=== PATIENT | female | born 1935 | race Caucasian/White ===

== ENCOUNTER 2020-04-11 22:15 | Emergency (ER) | payer MEDICARE | END 2020-04-12 02:30 | disposition home or self-care (01) | LOC: ERS 22:15 | DX: J44.1 Chronic obstructive pulmonary disease with (acute) exacerbation (principal); I48.91 Unspecified atrial fibrillation; E03.9 Hypothyroidism, unspecified; I11.0 Hypertensive heart disease with heart failure; I50.9 Heart failure, unspecified; E11.40 Type 2 diabetes mellitus with diabetic neuropathy, unspecified | CPT/HCPCS: 36415; 99285 ==

== ENCOUNTER 2020-04-12 15:29 | Emergency (ER) | payer MEDICARE ==
[2020-04-12] MEDS ORDERED: methylPREDNISolone Sod Succ/PF 125 MG/2 ML VIAL ONE (15:56)
[2020-04-12] MEDS ORDERED: Acetaminophen 500 MG TAB ONE (16:47)
[2020-04-12] MEDS ORDERED: cefTRIAXone\\ROCEPHIN 1 GM VIAL ONE (16:47)
[2020-04-12 16:53] LABS: Bacteria/HPF None Seen HPF (None Seen); Bilirubin Negative (Negative); Blood, Urine Negative (Negative); Clarity Clear (Clear); Glucose, Urine (Dipstick) Normal (Negative); Ketone, Urine Negative (Negative); Leukocyte Negative Leu/uL (Negative); Nitrite Negative (Negative); Protein, Urine (Dipstick) 100 mg/dL (Neg-Trace); RBC/HPF 0-3 HPF (0-3); Specific Gravity, Urine 1.025 (1.002-1.036); Urobilinogen Normal mg/dL (Less than 2); pH, Urine 5.5 (5.0-9.0)
[2020-04-12 16:57] LABS: Hemoglobin 11.7 g/dL (12.0-16.0); Mean Corpuscular HGB CONC 33.3 g/dL (32.0-36.0); Mean Corpuscular Hemoglobin 33.1 pg (27.0-31.0); Mean Corpuscular Volume 99.3 fL (78.0-98.0); Mean Platelet Volume 8.7 fL (7.4-10.4); Platelet Count 114 thou/uL (130-400); RBC Distribution Width 12.8 % (11.5-14.5); Red Blood Cell (RBC) Count 3.54 mill/uL (4.20-5.40); White Blood Cell (WBC) Count 11.1 thou/uL (4.8-10.8)
[2020-04-12 17:14] LABS: Band 13 % (5-11); Lymphocytes 6 % (21-51); MDiff Complete? YES; Monocytes 3 % (0-10); Neutrophil 78 % (42-75); Ovalocytes SLIGHT = 2-5 cells (100X) (0-1/hpf); Platelet Morphology Comment Appears Decreased; Polychromasia SLIGHT = 2-3 cells (100X) (0-2/hpf)
[2020-04-12 17:32] LABS: SARS-CoV-2 NAA Rapid Test Not Detected (NotDetected)
[2020-04-12 17:41] LABS: CKMB 0.6 ng/mL (0-6.6)
[2020-04-12] MEDS ORDERED: Azithromycin 500 MG VIAL ONE (17:55)
[2020-04-12 18:14] LABS: ALT (SGPT) 67 U/L (8-55); AST (SGOT) 59 U/L (5-34); Albumin 3.7 g/dL (3.4-4.8); Alkaline Phosphatase 210 U/L (40-110); Anion Gap 18 mmol/L (10-20); BUN (Urea Nitrogen) 28 mg/dL (9.8-20.1); Bilirubin, Total 1.2 mg/dL (0.2-1.2); Calc. Creatinine Clearance 0 mL/min (70-130); Calcium 9.5 mg/dL (7.8-10.44); Carbon Dioxide 24 mmol/L (23-31); Chloride 98 mmol/L (98-107); Glucose 128 mg/dL (83-110); Lipase 373 U/L (8-78); Magnesium 2.1 mg/dL (1.6-2.6); Potassium 4.8 mmol/L (3.5-5.1); Protein, Total 7.7 g/dL (5.8-8.1); Sodium 135 mmol/L (136-145)
== END 2020-04-12 21:17 | disposition short-term general hospital (02) ==
LOC: ERS 15:29
DX: J44.1 Chronic obstructive pulmonary disease with (acute) exacerbation (principal); J18.9 Pneumonia, unspecified organism; I48.91 Unspecified atrial fibrillation; M19.90 Unspecified osteoarthritis, unspecified site; I50.9 Heart failure, unspecified; E11.40 Type 2 diabetes mellitus with diabetic neuropathy, unspecified; E78.5 Hyperlipidemia, unspecified; I11.0 Hypertensive heart disease with heart failure; E66.9 Obesity, unspecified; Z20.822 Contact with and (suspected) exposure to COVID-19; E03.9 Hypothyroidism, unspecified
CPT/HCPCS: 0240U; 71045; 82553; 83605; 83690; 83735; 83880; 84484; 87040; 87086; 93005; 36415; 80053; 81003; 81015; 84443; 85025; 96365; 96366; 96367; 96375; J0456; J0696; J2930

== ENCOUNTER 2020-05-07 06:26 | Inpatient (IN) | payer MEDICARE ==
[2020-05-07 07:20] LABS: Anion Gap 16 mmol/L (10-20); BUN (Urea Nitrogen) 33 mg/dL (9.8-20.1); Calc. Creatinine Clearance 0 mL/min (70-130); Carbon Dioxide 24 mmol/L (23-31); Chloride 102 mmol/L (98-107); Glucose 146 mg/dL (83-110); Potassium 4.5 mmol/L (3.5-5.1); Sodium 137 mmol/L (136-145)
[2020-05-07] MEDS ORDERED: Norepinephrine 8 MG/0.9% NS 250 ML IVPB PRN (08:11)
[2020-05-07] MEDS ORDERED: Ondansetron PF 4 MG/2 ML Vial IVP PRN (08:11)
--- NOTE | 2020-05-07 08:21 | PDOC.HHP ---
Hospitalist HPI Fever History of Present Illness: The patient is an 84-year-old female with past medical history of COPD, CHF, atrial fibrillation on warfarin, hypothyroidism, diabetes mellitus, hypertension, hyperlipidemia, glaucoma, peripheral neuropathy, and aortic stenosis. She presented to [facility] with complaints of shortness of breath and fever over the past few days. Initial evaluation revealed that the patient was hypotensive and her lactic acid level was elevated. UA was suggestive of UTI. Chest imaging revealed chronic changes with no specific consolidation. The patient had no increased oxygen requirement above her baseline. Her rapid Covid test was negative. She was given fluid bolus per sepsis protocol but remained hypotensive and thus was started on vasopressors. Broad-spectrum antibiotics of vancomycin and cefepime were given and the patient was transferred to our facility. Allergies/Adverse Reactions: Allergy/AdvReac Type Severity Reaction Status Date / Time metolazone [From Zaroxolyn] Allergy Verified 06/08/19 13:58 sulfamethoxazole Allergy Verified 06/08/19 13:58 [From Bactrim] trimethoprim [From Bactrim] Allergy Verified 06/08/19 13:58 Home Medications: Medication Instructions Recorded Confirmed Type Albuterol Sulfate [Proair HFA] 2 puff INH Q4HR PRN 10/11/16 06/07/17 History Atorvastatin Calcium [Lipitor] 20 mg PO DAILY 10/11/16 06/07/17 History Betaxolol HCl [Betoptic S 0.25% 1 drop EA EYE BID 10/11/16 06/07/17 History Ophth Suspension] DULoxetine [Cymbalta] 30 mg PO DAILY 10/11/16 06/07/17 History Digoxin [Lanoxin] 0.125 mg PO DAILY 10/11/16 06/07/17 History Gabapentin 600 mg PO BID 10/11/16 05/07/20 History Levothyroxine Sodium [Levo-T] 112 mcg PO DAILY 10/11/16 05/07/20 History Loratadine [Claritin] 10 mg PO DAILY PRN 10/11/16 06/07/17 History Metoprolol Tartrate [Lopressor] 50 mg PO BID 10/11/16 06/07/17 History Omeprazole 20 mg PO BID 10/11/16 06/07/17 History Torsemide [Demadex] 30 mg PO DAILY 10/11/16 06/07/17 History Dicyclomine [Bentyl] 20 mg PO QID PRN #30 tab 10/20/16 06/07/17 Rx Lisinopril [Zestril] 5 mg PO DAILY 06/07/17 05/07/20 History Warfarin Sodium 5 mg PO SEEPHYS 06/07/17 06/07/17 History Warfarin Sodium 7.5 mg PO SEEPHYS 06/07/17 06/07/17 History metFORMIN [Glucophage] 500 mg PO BID-WM 06/07/17 05/07/20 History Past History: PMHx: As noted above PSHx: Valve replacement, bilateral hip surgery, left knee surgery, pacemaker placement, carpal tunnel surgery, laparoscopy and lysis of adhesion. FHx: Noncontributory to current presentation. Social: Denies alcohol use, illicit drug use, or smoking. Hospitalist HPI ROS All other systems reviewed; all pertinent +/- noted in HPI/Subj Hospitalist Exam General Appearance: awake alert ENT: normocephalic atraumatic Neck: supple Heart: irregular Respiratory: normal chest expansion, no tachypnea, rhonchi Gastrointestinal: soft, non-tender, non-distended Extremities: no cyanosis, no clubbing Neurological: cranial nerve grossly intact, no new deficit Hospitalist Results Result Diagrams: 05/07/20 06:52 Lab results: Laboratory Last Values Sodium 137 mmol/L (136-145) 05/07/20 06:52 Potassium 4.5 mmol/L (3.5-5.1) 05/07/20 06:52 Chloride 102 mmol/L (98-107) 05/07/20 06:52 Carbon Dioxide 24 mmol/L (23-31) 05/07/20 06:52 Anion Gap 16 mmol/L (10-20) 05/07/20 06:52 BUN 33 mg/dL (9.8-20.1) H 05/07/20 06:52 Creatinine 1.40 mg/dL (0.6-1.1) H 05/07/20 06:52 Estimated GFR (MDRD) 36 05/07/20 06:52 Glucose 146 mg/dL (83-110) H 05/07/20 06:52 Lactic Acid 2.1 mmol/L (0.5-2.2) 05/07/20 06:52 Calcium 9.0 mg/dL (7.8-10.44) 05/07/20 06:52 Hospitalist H&P A/P (1) Septic shock Code(s): A41.9 - SEPSIS, UNSPECIFIED ORGANISM; R65.21 - SEVERE SEPSIS WITH SEPTIC SHOCK Status: Acute (2) Urinary tract infection Status: Acute (3) Chronic respiratory failure with hypoxia Code(s): J96.11 - CHRONIC RESPIRATORY FAILURE WITH HYPOXIA Status: Acute (4) CHF (congestive heart failure) Code(s): I50.9 - HEART FAILURE, UNSPECIFIED Status: Acute (5) COPD (chronic obstructive pulmonary disease) Status: Acute (6) Hyperlipidemia Code(s): E78.5 - HYPERLIPIDEMIA, UNSPECIFIED Status: Acute (7) Diabetes mellitus type 2 in obese Code(s): E11.69 - TYPE 2 DIABETES MELLITUS WITH OTHER SPECIFIED COMPLICATION; E66.9 - OBESITY, UNSPECIFIED Status: Acute (8) Peripheral neuropathy Code(s): G62.9 - POLYNEUROPATHY, UNSPECIFIED Status: Acute (9) Chronic atrial fibrillation Code(s): I48.20 - CHRONIC ATRIAL FIBRILLATION, UNSPECIFIED Status: Acute (10) History of aortic stenosis Code(s): Z86.79 - PERSONAL HISTORY OF OTHER DISEASES OF THE CIRCULATORY SYSTEM Status: Acute (11) Obesity Code(s): E66.9 - OBESITY, UNSPECIFIED Status: Acute Plan: The patient will be admitted to the CCU. She does not appear to be in exacerbation of CHF or COPD and her oxygen requirements are at baseline. We will hold off on any diuretics until her septic shock resolves. We will manage her COPD with duo nebs as needed. As far as her septic shock, UTI is the most likely cause. I will start the patient on meropenem and obtain blood and urine cultures. The patient received a bolus of IV fluids. I will avoid further boluses due to her history of CHF. She is on norepinephrine at a rate of 10 and her systolic blood pressure is 135 at the moment. We will wean off norepinephrine as tolerated. Atrial fibrillation is currently controlled. We will resume her home digoxin now and metoprolol once her hypotension is resolved. Continue warfarin and check INR daily. As far as diabetes management, we will hold Metformin due to sepsis and use insulin sliding scale to control blood sugar levels. 40 minutes of critical care time was used to evaluate and manage this patient.
[2020-05-07] MEDS ORDERED: Dextrose 5% in Water 1,000 ML IV PRN (08:26)
[2020-05-07] MEDS ORDERED: Dextrose 50% Abboject 50 ML SYRINGE SLOW IVP PRN (08:26)
[2020-05-07] MEDS ORDERED: Warfarin Sodium 7.5 MG TAB PO SCH (08:30)
[2020-05-07] MEDS ORDERED: Warfarin Sodium 5 MG TAB PO SCH ×2 (08:30→17:00)
[2020-05-07] MEDS ORDERED: BETAXOLOL HCL EA EYE SCH (09:00)
[2020-05-07] MEDS ORDERED: Famotidine/PF 20 mg/2ml Vial SLOW IVP SCH (09:00)
[2020-05-07] MEDS ORDERED: Levothyroxine Sodium 100 MCG TAB PO SCH (09:00)
[2020-05-07 10:16] VITALS: BMI 32.9
[2020-05-07 10:41] LABS: Lactic Acid 4.2 mmol/L (0.5-2.2)
[2020-05-07] MEDS ORDERED: Albumin 25% 25 GM/100 ML BOT IVPB SCH (10:48)
[2020-05-07] MEDS ORDERED: Sodium Chloride 0.9% 500 ML IV SCH (11:00)
[2020-05-07] MEDS ORDERED: Digoxin 0.125 MG TAB ONE (12:42)
[2020-05-07] MEDS ORDERED: Famotidine/PF 20 mg/2ml Vial ONE (12:42)
[2020-05-07] MEDS ORDERED: Metoprolol Tartrate 50 MG TAB ONE (12:42)
[2020-05-07] MEDS: Atorvastatin Calcium 20 MG TAB PO SCH (12:49)
[2020-05-07] MEDS: Digoxin 0.125 MG TAB PO SCH (12:50)
[2020-05-07] MEDS: DULoxetine 30 MG CAP PO SCH (12:50)
[2020-05-07] MEDS: Metoprolol Tartrate 50 MG TAB PO SCH ×2 (12:51→21:36)
[2020-05-07] MEDS: Gabapentin 300 MG CAP PO SCH ×2 (12:51→21:34)
[2020-05-07] MEDS ORDERED: Meropenem 1 GM in Sodium Chloride 0.9% 100 ML IVPB SCH (14:00)
[2020-05-07] MEDS: MEROPENEM 1 GM/50 ML 1 GM in Premix Bag 1 BAG IVPB SCH ×2 (16:18→21:37)
[2020-05-07 16:32] LABS: INR-International Normal Ratio 1.3; Prothrombin Time 16.4 sec (12.0-14.7)
[2020-05-07] MEDS: Timolol 0.25% Ophth Soln 5 ml Bottle EA EYE SCH ×2 (17:48→21:36)
[2020-05-07] MEDS: Warfarin Sodium 5 MG TAB PO SCH (17:51)
[2020-05-07 18:13] LABS: Glucose 153 mg/dL (83-110)
[2020-05-07] MEDS ORDERED: Fentanyl 100 MCG/2 ML VIAL SLOW IVP SCH (19:15)
[2020-05-07] MEDS ORDERED: Midazolam HCl 2 mg/2 ml Vial SLOW IVP SCH (19:15)
[2020-05-07] MEDS ORDERED: EPINEPHrine 1 MG/ML AMP IVP SCH (19:15)
[2020-05-07 21:37] LABS: Glucose 165 mg/dL (83-110)
[2020-05-08 04:37] LABS: ALT (SGPT) 13 U/L (8-55); AST (SGOT) 24 U/L (5-34); Albumin 3.5 g/dL (3.4-4.8); Alkaline Phosphatase 59 U/L (40-110); Anion Gap 14 mmol/L (10-20); BUN (Urea Nitrogen) 39 mg/dL (9.8-20.1); Bilirubin, Total 0.8 mg/dL (0.2-1.2); Calc. Creatinine Clearance 38 mL/min (70-130); Calcium 8.8 mg/dL (7.8-10.44); Carbon Dioxide 26 mmol/L (23-31); Chloride 102 mmol/L (98-107); Globulin 3.1 g/dL (2.4-3.5); Glucose 114 mg/dL (83-110); Potassium 4.9 mmol/L (3.5-5.1); Protein, Total 6.6 g/dL (5.8-8.1); Sodium 137 mmol/L (136-145)
[2020-05-08 04:39] LABS: Band 2 % (5-11); Eosinophils 2 % (0-10); Hemoglobin 9.9 g/dL (12.0-16.0); Lymphocytes 12 % (21-51); MDiff Complete? YES; Mean Corpuscular HGB CONC 31.6 g/dL (32.0-36.0); Mean Platelet Volume 8.6 fL (7.4-10.4); Myelocyte 4 % (0-0); Neutrophil 80 % (42-75); Platelet Count 112 thou/uL (130-400); Platelet Morphology Comment Appears Decreased; RBC Distribution Width 13.7 % (11.5-14.5); Red Blood Cell (RBC) Count 3.08 mill/uL (4.20-5.40); White Blood Cell (WBC) Count 11.7 thou/uL (4.8-10.8)
[2020-05-08 05:02] LABS: INR-International Normal Ratio 1.5
[2020-05-08] MEDS: Levothyroxine Sodium 112 MCG TAB PO SCH (05:29)
[2020-05-08] MEDS: MEROPENEM 1 GM/50 ML 1 GM in Premix Bag 1 BAG IVPB SCH ×3 (05:29→21:12)
[2020-05-08] MEDS: Gabapentin 300 MG CAP PO SCH ×2 (07:18→19:43)
[2020-05-08] MEDS: Atorvastatin Calcium 20 MG TAB PO SCH (07:18)
[2020-05-08] MEDS: Metoprolol Tartrate 50 MG TAB PO SCH (07:18)
[2020-05-08] MEDS: Digoxin 0.125 MG TAB PO SCH (07:18)
[2020-05-08] MEDS: DULoxetine 30 MG CAP PO SCH (07:18)
[2020-05-08] MEDS ORDERED: Famotidine/PF 20 mg/2ml Vial SLOW IVP SCH (09:00)
[2020-05-08] MEDS: Timolol 0.25% Ophth Soln 5 ml Bottle EA EYE SCH ×2 (10:02→19:46)
--- NOTE | 2020-05-08 11:51 | CON ---
DATE OF CONSULTATION: 05/08/2020 TIME: 50 minutes. CONSULTING PHYSICIAN: Hospitalist group. REASON FOR CONSULTATION: The patient is on Levophed. HISTORY OF PRESENT ILLNESS: This is an 84-year-old female who has multiple medical problems and presented to an outside hospital yesterday with low blood pressure with urosepsis. She was started on Levophed, hydrated, and started on broad spectrum IV antibiotics. She is much better today. PAST MEDICAL HISTORY: 1. COPD. 2. Congestive heart failure. 3. Atrial fibrillation, requiring anticoagulation. 4. Hypothyroidism. 5. Diabetes mellitus, type 2. 6. Hypertension. 7. Hyperlipidemia. 8. Glaucoma. 9. Peripheral neuropathy. 10. Aortic stenosis. PAST SURGICAL HISTORY: 1. Heart valve replacement. 2. Bilateral hip surgery. 3. Left knee surgery. 4. Pacemaker placement. 5. Carpal tunnel release. 6. Adhesiolysis. FAMILY MEDICAL HISTORY: Unremarkable. SOCIAL HISTORY: Nonsmoker. Does not consume alcohol. Does not use illicit drugs. MEDICATIONS: Prior to admission, these were reviewed and are listed in home medication section on the chart. ALLERGIES: METOLAZONE, BACTRIM, AND SULFA DRUGS. REVIEW OF SYSTEMS: Twelve-point review of systems is otherwise negative. PHYSICAL EXAMINATION: VITAL SIGNS: Temperature is 99.7 with T-max of 100.0, pulse 82, blood pressure 126/69, O2 saturation 100% on 2 L. She is currently on Levophed drip at 2 mcg/minute. HEENT: Unremarkable. NECK: No adenopathy or JVD. CHEST: Clear without wheezing or rhonchi. CARDIOVASCULAR: S1 and S2. Regular without murmur. ABDOMEN: Soft, obese, nontender. EXTREMITIES: No clubbing or cyanosis. She has stasis changes over her legs bilaterally. IMAGING: A chest x-ray obtained an outside facility demonstrated the pacemaker. She has cardiomegaly. No acute infiltrates. A CT chest demonstrates either a small pocket of fluid and perhaps some atelectatic lung down the left base. She had a CT angiogram of the chest performed a couple of weeks ago. Comparing the two studies, the periaortic density was there before. LABORATORY DATA: White cell count 11.7, hematocrit 31, platelet count 112. INR 1.5. Sodium 137, potassium 4.9, chloride 102, CO2 of 26, BUN 39, creatinine 1.4, glucose 114. Last lactate was 4.2. Urinalysis showed copious white blood cells in the urine. ASSESSMENT: 1. Urosepsis. 2. Renal dysfunction. 3. Periaortic density, which is probably chronic in nature or perhaps reflective of recently resolved pneumonia. RECOMMENDATIONS: I have reviewed the orders, agree with current antibiotic meropenem. She can go to the floor as soon as she is weaned off the norepinephrine. She probably needs a CT scan through her primary care provider in 3 to 4 months to follow up the findings above. Job ID: [id number]
[2020-05-08] MEDS: Warfarin Sodium 5 MG TAB PO SCH (16:09)
--- NOTE | 2020-05-08 17:18 | PDOC.HOSPP ---
- Subjective Encounter Date: 05/08/20 Encounter Time: 10:30 Subjective: awake, responds well to verbal stimuli has no abd pain or palp feels a whole lot better per patient - Objective Vital Signs & Weight: Vital Signs (12 hours) Temp Pulse Pulse Ox 05/08/20 10:00 99 F 05/08/20 09:00 99 F 05/08/20 08:00 99 F 05/08/20 07:18 80 05/08/20 07:08 100 05/08/20 07:00 99 F 05/08/20 06:43 100 Weight Admit Weight 3.069 oz Weight 191 lb 12.835 oz Most Recent Monitor Data Heart Rate from ECG 87 NIBP 121/93 NIBP BP-Mean 102 Respiration from ECG 13 SpO2 87 I&O: 05/07/20 05/08/20 05/09/20 06:59 06:59 06:59 Intake Total 747.6 2670.4 Output Total 1045 880 Balance -297.4 1790.4 Result Diagrams: 05/08/20 03:30 05/08/20 03:30 Additional Labs: Accuchecks 05/08/20 03:29 POC Glucose 90 Hospitalist ROS - Medication Medications: Active Medications Generic Name Dose Route Start Last Admin Trade Name Freq PRN Reason Stop Dose Admin Atorvastatin Calcium 20 mg 05/07/20 09:00 05/08/20 07:18 Atorvastatin Calcium 20 Mg Tab PO 20 mg DAILY KAILEY Administration Digoxin 0.125 mg 05/07/20 09:00 05/08/20 07:18 Digoxin 0.125 Mg Tab PO 0.125 mg DAILY KAILEY Administration Duloxetine HCl 30 mg 05/07/20 09:00 05/08/20 07:18 Duloxetine 30 Mg Cap PO 30 mg DAILY KAILEY Administration Famotidine 20 mg 05/08/20 09:00 05/08/20 10:03 Famotidine/Pf 20 Mg/2ml Vial SLOW IVP 20 mg Q24HR KAILEY Administration Gabapentin 600 mg 05/07/20 09:00 05/08/20 07:18 Gabapentin 300 Mg Cap PO 600 mg BID KAILEY Administration Norepinephrine Bitartrate 250 mls @ 0 mls/hr 05/07/20 08:11 05/07/20 14:21 Levophed IVPB 250 mls PRN PRN Administration To maintain MAP > 65 Protocol Titrate Meropenem 1 gm/ Device 50 mls @ 200 mls/hr 05/07/20 14:00 05/08/20 15:01 IVPB 50 mls Q8HR KAILEY Administration Levothyroxine Sodium 112 mcg 05/08/20 06:00 05/08/20 05:29 Levothyroxine Sodium 112 Mcg Tab PO 112 mcg 0600 KAILEY Administration Metoprolol Tartrate 50 mg 05/07/20 09:00 05/08/20 07:18 Metoprolol Tartrate 50 Mg Tab PO 50 mg BID KAILEY Administration Sodium Chloride 10 ml 05/07/20 09:00 05/08/20 10:02 Flush - Normal Saline 10 Ml Syringe IVF Not Given Q12HR KAILEY Timolol Maleate 1 drop 05/07/20 09:00 05/08/20 10:02 Timolol 0.25% Ophth Soln 5 Ml Bottle EA EYE 1 each BID KAILEY Administration Warfarin Sodium 5 mg 05/07/20 17:00 05/08/20 16:09 Warfarin Sodium 5 Mg Tab PO 5 mg [email or web address] KAILEY Administration Hospitalist Exam Vitals: Vital Signs (12 hours) Temp Pulse Pulse Ox 05/08/20 10:00 99 F 05/08/20 09:00 99 F 05/08/20 08:00 99 F 05/08/20 07:18 80 05/08/20 07:08 100 05/08/20 07:00 99 F 05/08/20 06:43 100 Weight Admit Weight 3.069 oz Weight 191 lb 12.835 oz Most Recent Monitor Data Heart Rate from ECG 87 NIBP 121/93 NIBP BP-Mean 102 Respiration from ECG 13 SpO2 87 General Appearance: awake alert Eye: PERRL, anicteric sclera ENT: no oropharyngeal lesions, moist mucosa Neck: supple, no JVD Heart: RRR, no murmur Respiratory: no wheezes, no rales Gastrointestinal: soft, non-tender, non-distended, normal bowel sounds Extremities: no cyanosis, no edema Neurological: cranial nerve grossly intact, no focal deficits Psychiatric: normal affect, A&O x 3 Hosp A/P (1) Septic shock Code(s): A41.9 - SEPSIS, UNSPECIFIED ORGANISM; R65.21 - SEVERE SEPSIS WITH SEPTIC SHOCK Status: Resolved (2) Urinary tract infection Status: Acute Qualifiers: Urinary tract infection type: acute cystitis Hematuria presence: without hematuria Qualified Code(s): N30.00 - Acute cystitis without hematuria (3) CHF (congestive heart failure) Code(s): I50.9 - HEART FAILURE, UNSPECIFIED Status: Chronic Qualifiers: Heart failure type: diastolic (4) COPD (chronic obstructive pulmonary disease) Status: Chronic Qualifiers: COPD type: chronic bronchitis Chronic bronchitis type: unspecified Qualified Code(s): J42 - Unspecified chronic bronchitis (5) Chronic atrial fibrillation Code(s): I48.20 - CHRONIC ATRIAL FIBRILLATION, UNSPECIFIED Status: Chronic (6) Chronic respiratory failure with hypoxia Code(s): J96.11 - CHRONIC RESPIRATORY FAILURE WITH HYPOXIA Status: Chronic (7) Diabetes mellitus type 2 in obese Code(s): E11.69 - TYPE 2 DIABETES MELLITUS WITH OTHER SPECIFIED COMPLICATION; E66.9 - OBESITY, UNSPECIFIED Status: Chronic (8) History of aortic stenosis Code(s): Z86.79 - PERSONAL HISTORY OF OTHER DISEASES OF THE CIRCULATORY SYSTEM Status: Chronic (9) Hyperlipidemia Code(s): E78.5 - HYPERLIPIDEMIA, UNSPECIFIED Status: Chronic Qualifiers: Hyperlipidemia type: mixed hyperlipidemia Qualified Code(s): E78.2 - Mixed hyperlipidemia (10) Obesity Code(s): E66.9 - OBESITY, UNSPECIFIED Status: Chronic Qualifiers: Obesity classification: adult class 1 (BMI 30 - 34.9) Body mass index: BMI 32.0-32.9 (11) Peripheral neuropathy Code(s): G62.9 - POLYNEUROPATHY, UNSPECIFIED Status: Chronic Qualifiers: Peripheral neuropathy type: polyneuropathy, unspecified Qualified Code(s): G62.9 - Polyneuropathy, unspecified (12) CKD (chronic kidney disease) stage 3, GFR 30-59 ml/min Code(s): N18.3 - CHRONIC KIDNEY DISEASE, STAGE 3 (MODERATE) * DO NOT USE * Status: Chronic (13) Physical deconditioning Code(s): R53.81 - OTHER MALAISE Status: Acute - Plan is off levophed, hemostable continue merrem, nebs, synthroid, digoxin, lipitor, cymbalta, neurontin, coumadin. PT eval await full cultures tx to telemetry renal function is holding up, labs in am will need placement if she is from home d/w son Shubham Platt over phone and gave full updates.
[2020-05-08] MEDS: Acetaminophen 325 MG TAB PO PRN (19:44)
[2020-05-08] MEDS: Metoprolol Tartrate 25 MG TAB PO SCH (19:45)
[2020-05-09] MEDS: Acetaminophen 325 MG TAB PO PRN ×2 (03:53→19:30)
[2020-05-09 04:38] LABS: INR-International Normal Ratio 1.2; Prothrombin Time 15.7 sec (12.0-14.7)
[2020-05-09 05:07] LABS: Band 16 % (5-11); Eosinophils 1 % (0-10); Hemoglobin 9.7 g/dL (12.0-16.0); Hypochromia SLIGHT = 6-15 cells (100X) (0-5/hpf); Lymphocytes 4 % (21-51); MDiff Complete? YES; Macrocytosis SLIGHT = 6-15 cells (100X) (0-5/hpf); Mean Corpuscular Hemoglobin 32.8 pg (27.0-31.0); Mean Platelet Volume 8.7 fL (7.4-10.4); Metamyelocyte 1 % (0-0); Monocytes 11 % (0-10); Neutrophil 67 % (42-75); Platelet Count 93 thou/uL (130-400); Platelet Morphology Comment Appears Decreased; RBC Distribution Width 13.6 % (11.5-14.5); Red Blood Cell (RBC) Count 2.94 mill/uL (4.20-5.40)
[2020-05-09 05:10] LABS: ALT (SGPT) 12 U/L (8-55); AST (SGOT) 20 U/L (5-34); Albumin 3.4 g/dL (3.4-4.8); Alkaline Phosphatase 56 U/L (40-110); Anion Gap 13 mmol/L (10-20); BUN (Urea Nitrogen) 38 mg/dL (9.8-20.1); Bilirubin, Total 0.7 mg/dL (0.2-1.2); Calc. Creatinine Clearance 46 mL/min (70-130); Carbon Dioxide 27 mmol/L (23-31); Chloride 103 mmol/L (98-107); Globulin 3.2 g/dL (2.4-3.5); Glucose 120 mg/dL (83-110); Potassium 4.8 mmol/L (3.5-5.1); Protein, Total 6.6 g/dL (5.8-8.1); Sodium 138 mmol/L (136-145)
[2020-05-09] MEDS: MEROPENEM 1 GM/50 ML 1 GM in Premix Bag 1 BAG IVPB SCH ×3 (05:16→21:31)
[2020-05-09] MEDS: Levothyroxine Sodium 112 MCG TAB PO SCH (05:16)
[2020-05-09] MEDS: Digoxin 0.125 MG TAB PO SCH (07:51)
[2020-05-09] MEDS: Gabapentin 300 MG CAP PO SCH ×2 (07:52→19:31)
[2020-05-09] MEDS: DULoxetine 30 MG CAP PO SCH (07:53)
[2020-05-09] MEDS: Atorvastatin Calcium 20 MG TAB PO SCH (07:53)
[2020-05-09] MEDS: Metoprolol Tartrate 25 MG TAB PO SCH ×2 (07:57→19:31)
[2020-05-09] MEDS: Timolol 0.25% Ophth Soln 5 ml Bottle EA EYE SCH ×2 (08:49→19:37)
--- NOTE | 2020-05-09 11:17 | PRG ---
DATE OF SERVICE: 05/09/2020 SUBJECTIVE: The patient has been weaned off the Levophed and is doing well. No complaints. OBJECTIVE: VITAL SIGNS: Temperature 99, pulse 90, blood pressure 130/66, O2 saturation 97%. HEENT: Unremarkable. NECK: No adenopathy or JVD. LUNGS: Clear. CARDIAC: S1 and S2 regular. ABDOMEN: Soft. EXTREMITIES: No edema. LABORATORY DATA: Sodium 138, potassium 4.8, BUN 38, creatinine 1.2, glucose 120. White blood cell count 10, hematocrit 30, and platelet count 93. Culture showed no new growth to date. ASSESSMENT: 1. Urosepsis. 2. Renal dysfunction. PLAN: This patient can be transferred to the floor for further antibiotic therapy. There are no acute pulmonary problems. We will sign off the case. Please recall needed. Job ID: [id number]
[2020-05-09] MEDS: Warfarin Sodium 5 MG TAB PO SCH (16:21)
--- NOTE | 2020-05-09 16:56 | PDOC.HOSPP ---
- Subjective Encounter Date: 05/09/20 Encounter Time: 11:30 Subjective: no complaints, feels better, a bit lethargic this am ate her breakfast, no sob - Objective Vital Signs & Weight: Vital Signs (12 hours) Pulse Pulse Ox 05/09/20 07:51 84 05/09/20 07:02 97 Weight Admit Weight 3.069 oz Weight 191 lb 12.835 oz Most Recent Monitor Data Heart Rate from ECG 83 NIBP 137/59 NIBP BP-Mean 85 Respiration from ECG 26 SpO2 100 I&O: 05/08/20 05/09/20 05/10/20 06:59 06:59 06:59 Intake Total 747.6 3090.4 62 Output Total 1045 2025 675 Balance -297.4 1065.4 -613 Result Diagrams: 05/09/20 03:30 05/09/20 03:30 Additional Labs: Accuchecks 05/09/20 05/08/20 03:31 20:35 POC Glucose 127 H 103 H Hospitalist ROS - Medication Medications: Active Medications Generic Name Dose Route Start Last Admin Trade Name Freq PRN Reason Stop Dose Admin Acetaminophen 650 mg 05/07/20 17:16 05/09/20 03:53 Acetaminophen 325 Mg Tab PO 650 mg Q6H PRN Administration Fever > 101 Atorvastatin Calcium 20 mg 05/07/20 09:00 05/09/20 07:53 Atorvastatin Calcium 20 Mg Tab PO 20 mg DAILY KAILEY Administration Digoxin 0.125 mg 05/07/20 09:00 05/09/20 07:51 Digoxin 0.125 Mg Tab PO 0.125 mg DAILY KAILEY Administration Duloxetine HCl 30 mg 05/07/20 09:00 05/09/20 07:53 Duloxetine 30 Mg Cap PO 30 mg DAILY KAILEY Administration Gabapentin 600 mg 05/07/20 09:00 05/09/20 07:52 Gabapentin 300 Mg Cap PO 600 mg BID KAILEY Administration Meropenem 1 gm/ Device 50 mls @ 200 mls/hr 05/07/20 14:00 05/09/20 14:03 IVPB 50 mls Q8HR KAILEY Administration Levothyroxine Sodium 112 mcg 05/08/20 06:00 05/09/20 05:16 Levothyroxine Sodium 112 Mcg Tab PO 112 mcg 0600 KAILEY Administration Metoprolol Tartrate 12.5 mg 05/08/20 21:00 05/09/20 07:57 Metoprolol Tartrate 25 Mg Tab PO 12.5 mg BID KAILEY Administration Pantoprazole Sodium 40 mg 05/09/20 09:00 05/09/20 08:42 Pantoprazole 40 Mg Tab PO 40 mg DAILY KAILEY Administration Sodium Chloride 10 ml 05/07/20 09:00 05/09/20 07:23 Flush - Normal Saline 10 Ml Syringe IVF 10 ml Q12HR KAILEY Administration Timolol Maleate 1 drop 05/07/20 09:00 05/09/20 08:49 Timolol 0.25% Ophth Soln 5 Ml Bottle EA EYE 1 each BID KAILEY Administration Warfarin Sodium 5 mg 05/07/20 17:00 05/09/20 16:21 Warfarin Sodium 5 Mg Tab PO 5 mg [email or web address] KAILEY Administration Hospitalist Exam Vitals: Vital Signs (12 hours) Pulse Pulse Ox 05/09/20 07:51 84 05/09/20 07:02 97 Weight Admit Weight 3.069 oz Weight 191 lb 12.835 oz Most Recent Monitor Data Heart Rate from ECG 83 NIBP 137/59 NIBP BP-Mean 85 Respiration from ECG 26 SpO2 100 Eye: PERRL, anicteric sclera ENT: no oropharyngeal lesions, moist mucosa Neck: supple, no JVD Heart: RRR, no murmur Respiratory: no wheezes, no rales Gastrointestinal: soft, non-tender, non-distended, normal bowel sounds Extremities: no cyanosis, no edema Neurological: cranial nerve grossly intact, no focal deficits Hosp A/P (1) Septic shock Code(s): A41.9 - SEPSIS, UNSPECIFIED ORGANISM; R65.21 - SEVERE SEPSIS WITH SEPTIC SHOCK Status: Resolved (2) Urinary tract infection Status: Acute Qualifiers: Urinary tract infection type: acute cystitis Hematuria presence: without hematuria Qualified Code(s): N30.00 - Acute cystitis without hematuria (3) CHF (congestive heart failure) Code(s): I50.9 - HEART FAILURE, UNSPECIFIED Status: Chronic Qualifiers: Heart failure type: diastolic (4) COPD (chronic obstructive pulmonary disease) Status: Chronic Qualifiers: COPD type: chronic bronchitis Chronic bronchitis type: unspecified Qualified Code(s): J42 - Unspecified chronic bronchitis (5) Chronic atrial fibrillation Code(s): I48.20 - CHRONIC ATRIAL FIBRILLATION, UNSPECIFIED Status: Chronic (6) Chronic respiratory failure with hypoxia Code(s): J96.11 - CHRONIC RESPIRATORY FAILURE WITH HYPOXIA Status: Chronic (7) Diabetes mellitus type 2 in obese Code(s): E11.69 - TYPE 2 DIABETES MELLITUS WITH OTHER SPECIFIED COMPLICATION; E66.9 - OBESITY, UNSPECIFIED Status: Chronic (8) History of aortic stenosis Code(s): Z86.79 - PERSONAL HISTORY OF OTHER DISEASES OF THE CIRCULATORY SYSTEM Status: Chronic (9) Hyperlipidemia Code(s): E78.5 - HYPERLIPIDEMIA, UNSPECIFIED Status: Chronic Qualifiers: Hyperlipidemia type: mixed hyperlipidemia Qualified Code(s): E78.2 - Mixed hyperlipidemia (10) Obesity Code(s): E66.9 - OBESITY, UNSPECIFIED Status: Chronic Qualifiers: Obesity classification: adult class 1 (BMI 30 - 34.9) Body mass index: BMI 32.0-32.9 (11) Peripheral neuropathy Code(s): G62.9 - POLYNEUROPATHY, UNSPECIFIED Status: Chronic Qualifiers: Peripheral neuropathy type: polyneuropathy, unspecified Qualified Code(s): G62.9 - Polyneuropathy, unspecified (12) CKD (chronic kidney disease) stage 3, GFR 30-59 ml/min Code(s): N18.3 - CHRONIC KIDNEY DISEASE, STAGE 3 (MODERATE) * DO NOT USE * Status: Chronic (13) Physical deconditioning Code(s): R53.81 - OTHER MALAISE Status: Acute - Plan continue merrem, nebs, synthroid, digoxin, lipitor, cymbalta, neurontin, coumadin. PT eval await full cultures awaiting telemetry bed renal function is holding up, labs in am will need placement to rehab, lives at home with son d/w son Shubham Platt over phone and gave full updates on 05/08/20.
[2020-05-10 04:16] LABS: INR-International Normal Ratio 1.3; Prothrombin Time 16.6 sec (12.0-14.7)
[2020-05-10 04:25] LABS: Band 29 % (5-11); Eosinophils 2 % (0-10); Hemoglobin 10.8 g/dL (12.0-16.0); Lymphocytes 7 % (21-51); MDiff Complete? YES; Mean Corpuscular HGB CONC 32.5 g/dL (32.0-36.0); Mean Corpuscular Hemoglobin 32.7 pg (27.0-31.0); Mean Platelet Volume 8.7 fL (7.4-10.4); Monocytes 6 % (0-10); Neutrophil 56 % (42-75); Platelet Count 96 thou/uL (130-400); Platelet Morphology Comment Appears Decreased; RBC Distribution Width 13.3 % (11.5-14.5); White Blood Cell (WBC) Count 8.6 thou/uL (4.8-10.8)
[2020-05-10 04:33] LABS: ALT (SGPT) 13 U/L (8-55); AST (SGOT) 17 U/L (5-34); Albumin 3.4 g/dL (3.4-4.8); Alkaline Phosphatase 56 U/L (40-110); Anion Gap 12 mmol/L (10-20); BUN (Urea Nitrogen) 31 mg/dL (9.8-20.1); Bilirubin, Total 0.6 mg/dL (0.2-1.2); Calc. Creatinine Clearance 59 mL/min (70-130); Calcium 9.4 mg/dL (7.8-10.44); Carbon Dioxide 30 mmol/L (23-31); Chloride 103 mmol/L (98-107); Globulin 3.5 g/dL (2.4-3.5); Glucose 122 mg/dL (83-110); Potassium 5.2 mmol/L (3.5-5.1); Protein, Total 6.9 g/dL (5.8-8.1); Sodium 140 mmol/L (136-145)
[2020-05-10] MEDS: Levothyroxine Sodium 112 MCG TAB PO SCH (04:58)
[2020-05-10] MEDS: MEROPENEM 1 GM/50 ML 1 GM in Premix Bag 1 BAG IVPB SCH (04:58)
[2020-05-10] MEDS: Acetaminophen 325 MG TAB PO PRN ×2 (06:09→14:08)
[2020-05-10] MEDS: Timolol 0.25% Ophth Soln 5 ml Bottle EA EYE SCH ×2 (08:34→19:47)
[2020-05-10] MEDS: Metoprolol Tartrate 25 MG TAB PO SCH ×2 (08:35→19:46)
[2020-05-10] MEDS: Digoxin 0.125 MG TAB PO SCH (08:35)
[2020-05-10] MEDS: DULoxetine 30 MG CAP PO SCH (08:38)
[2020-05-10] MEDS: Gabapentin 300 MG CAP PO SCH ×2 (08:38→19:46)
[2020-05-10] MEDS: Atorvastatin Calcium 20 MG TAB PO SCH (08:38)
[2020-05-10] MEDS ORDERED: Meropenem 1 GM in Sodium Chloride 0.9% 100 ML IVPB SCH (14:00)
--- NOTE | 2020-05-10 15:35 | PDOC.HOSPP ---
- Subjective Encounter Date: 05/10/20 Encounter Time: 11:25 Subjective: lethargic but awakens easily follows verbal stimuli per staff she didn't sleep well last night - Objective Vital Signs & Weight: Vital Signs (12 hours) Temp Pulse Pulse Pulse Resp BP BP 05/10/20 10:10 81 82 120/71 129/63 05/10/20 08:35 117 H 05/10/20 08:00 05/10/20 06:34 100.8 F H 101 H 28 H 05/10/20 06:09 100.8 F H 104 H 30 H Pulse Ox Pulse Ox Pulse Ox 05/10/20 10:10 100 100 05/10/20 08:35 05/10/20 08:00 91 L 05/10/20 06:34 05/10/20 06:09 Weight Admit Weight 3.069 oz Weight 191 lb 12.835 oz Most Recent Monitor Data Heart Rate from ECG 80 NIBP 129/63 NIBP BP-Mean 85 Respiration from ECG 21 SpO2 94 I&O: 05/09/20 05/10/20 05/11/20 06:59 06:59 06:59 Intake Total 3090.4 642 20 Output Total 2024 2560 100 Balance 1065.4 -1918 -80 Result Diagrams: 05/10/20 03:40 05/10/20 03:40 Additional Labs: Accuchecks 05/10/20 05/10/20 05/09/20 10:53 03:43 21:34 POC Glucose 108 H 117 H 125 H Hospitalist ROS - Medication Medications: Active Medications Generic Name Dose Route Start Last Admin Trade Name Micheal PRN Reason Stop Dose Admin Acetaminophen 650 mg 05/07/20 17:16 05/10/20 14:08 Acetaminophen 325 Mg Tab PO 650 mg Q6H PRN Administration Fever > 101 Atorvastatin Calcium 20 mg 05/07/20 09:00 05/10/20 08:38 Atorvastatin Calcium 20 Mg Tab PO 20 mg DAILY KAILEY Administration Digoxin 0.125 mg 05/07/20 09:00 05/10/20 08:35 Digoxin 0.125 Mg Tab PO 0.125 mg DAILY KAILEY Administration Duloxetine HCl 30 mg 05/07/20 09:00 05/10/20 08:38 Duloxetine 30 Mg Cap PO 30 mg DAILY KAILEY Administration Levothyroxine Sodium 112 mcg 05/08/20 06:00 05/10/20 04:58 Levothyroxine Sodium 112 Mcg Tab PO 112 mcg 0600 KAILEY Administration Metoprolol Tartrate 12.5 mg 05/08/20 21:00 05/10/20 08:35 Metoprolol Tartrate 25 Mg Tab PO 12.5 mg BID KAILEY Administration Pantoprazole Sodium 40 mg 05/09/20 09:00 05/10/20 08:37 Pantoprazole 40 Mg Tab PO 40 mg DAILY KAILEY Administration Sodium Chloride 10 ml 05/07/20 09:00 05/10/20 08:39 Flush - Normal Saline 10 Ml Syringe IVF 10 ml Q12HR KAILEY Administration Timolol Maleate 1 drop 05/07/20 09:00 05/10/20 08:34 Timolol 0.25% Ophth Soln 5 Ml Bottle EA EYE 1 each BID KAILEY Administration Warfarin Sodium 5 mg 05/07/20 17:00 05/09/20 16:21 Warfarin Sodium 5 Mg Tab PO 5 mg [id number]@[id number] KAILEY Administration Hospitalist Exam Vitals: Vital Signs (12 hours) Temp Pulse Pulse Pulse Resp BP BP 05/10/20 10:10 81 82 120/71 129/63 05/10/20 08:35 117 H 05/10/20 08:00 05/10/20 06:34 100.8 F H 101 H 28 H 05/10/20 06:09 100.8 F H 104 H 30 H Pulse Ox Pulse Ox Pulse Ox 05/10/20 10:10 100 100 05/10/20 08:35 05/10/20 08:00 91 L 05/10/20 06:34 05/10/20 06:09 Weight Admit Weight 3.069 oz Weight 191 lb 12.835 oz Most Recent Monitor Data Heart Rate from ECG 80 NIBP 129/63 NIBP BP-Mean 85 Respiration from ECG 21 SpO2 94 Eye: PERRL, anicteric sclera ENT: no oropharyngeal lesions, moist mucosa Neck: supple, no JVD Heart: RRR, no murmur Respiratory: no wheezes, no rales Gastrointestinal: soft, non-tender, non-distended, normal bowel sounds Extremities: no cyanosis, no edema Neurological: cranial nerve grossly intact, no focal deficits Hosp A/P (1) Septic shock Code(s): A41.9 - SEPSIS, UNSPECIFIED ORGANISM; R65.21 - SEVERE SEPSIS WITH SEPTIC SHOCK Status: Acute (2) Urinary tract infection Status: Acute Qualifiers: Urinary tract infection type: acute cystitis Hematuria presence: without hematuria Qualified Code(s): N30.00 - Acute cystitis without hematuria (3) CHF (congestive heart failure) Code(s): I50.9 - HEART FAILURE, UNSPECIFIED Status: Chronic Qualifiers: Heart failure type: diastolic (4) COPD (chronic obstructive pulmonary disease) Status: Chronic Qualifiers: COPD type: chronic bronchitis Chronic bronchitis type: unspecified Qualified Code(s): J42 - Unspecified chronic bronchitis (5) Chronic atrial fibrillation Code(s): I48.20 - CHRONIC ATRIAL FIBRILLATION, UNSPECIFIED Status: Chronic (6) Chronic respiratory failure with hypoxia Code(s): J96.11 - CHRONIC RESPIRATORY FAILURE WITH HYPOXIA Status: Chronic (7) Diabetes mellitus type 2 in obese Code(s): E11.69 - TYPE 2 DIABETES MELLITUS WITH OTHER SPECIFIED COMPLICATION; E66.9 - OBESITY, UNSPECIFIED Status: Chronic (8) History of aortic stenosis Code(s): Z86.79 - PERSONAL HISTORY OF OTHER DISEASES OF THE CIRCULATORY SYSTEM Status: Chronic (9) Hyperlipidemia Code(s): E78.5 - HYPERLIPIDEMIA, UNSPECIFIED Status: Chronic Qualifiers: Hyperlipidemia type: mixed hyperlipidemia Qualified Code(s): E78.2 - Mixed hyperlipidemia (10) Obesity Code(s): E66.9 - OBESITY, UNSPECIFIED Status: Chronic Qualifiers: Obesity classification: adult class 1 (BMI 30 - 34.9) Body mass index: BMI 32.0-32.9 (11) Peripheral neuropathy Code(s): G62.9 - POLYNEUROPATHY, UNSPECIFIED Status: Chronic Qualifiers: Peripheral neuropathy type: polyneuropathy, unspecified Qualified Code(s): G62.9 - Polyneuropathy, unspecified (12) CKD (chronic kidney disease) stage 3, GFR 30-59 ml/min Code(s): N18.3 - CHRONIC KIDNEY DISEASE, STAGE 3 (MODERATE) * DO NOT USE * Status: Chronic (13) Physical deconditioning Code(s): R53.81 - OTHER MALAISE Status: Acute - Plan continue nebs, synthroid, digoxin, lipitor, cymbalta, neurontin, coumadin, change merrem to cipro based on urine cs. PT eval, to mobilize as tolerated had tmax of 100 this am despite being on merrem, ID consultation. awaiting telemetry bed renal function is holding up, labs in am will need placement to rehab, lives at home with son d/w son Shubham Platt over phone and gave full updates on 05/08/20, tried calling him 05/10 cant reach him.
[2020-05-10] MEDS ORDERED: Furosemide 20 MG/2 ML VIAL SLOW IVP SCH (15:45)
[2020-05-10] MEDS: Warfarin Sodium 5 MG TAB PO SCH (16:20)
--- NOTE | 2020-05-10 17:31 | ULT ---
ULTRASOUND ABDOMEN: History: Cystic lesions detected on CT scan. FINDINGS: Multiple cysts are seen in the spleen, largest measuring about 3.9 cm. The liver demonstrates fairly homogeneous echo density without focal mass or abnormal biliary ductal dilatation. There is a shadowi ng gallstone without gallbladder wall thickening. There is a small amount of free fluid around the ga llbladder. The automobile body repair supervisor reports a negative Horta's sign. The pancreas is not well visualized due to gas. The aorta and IVC are also not satisfactorily visuali zed. The common duct measures 2 mm. The kidneys are normal. IMPRESSION: 1. Gallstones with small amount of free fluid surrounding the gallbladder. If there is clinical sheri rn for acute cholecystitis a HIDA scan should be performed. 2. Splenic cysts. POS: OFF
--- NOTE | 2020-05-10 18:27 | EKG ---
Test Reason : STAT Blood Pressure : / mmHG Vent. Rate : 104 BPM Atrial Rate : 084 BPM P-R Int : 000 ms QRS Dur : 128 ms QT Int : 378 ms P-R-T Axes : 000 122 -46 degrees QTc Int : 497 ms Ventricular-paced rhythm with occasional Premature ventricular complexes Abnormal ECG When compared with ECG of 12-APR-2020 16:01, Premature ventricular complexes are now Present Vent. rate has decreased BY 2 BPM Confirmed by LIDYA ELLIS, . SAshutosh (4) on 05/10/2020 6:27:18 PM Referred By: MADIHA Confirmed By:DR. Stanislav BOSE MD
--- NOTE | 2020-05-10 18:31 | CON ---
DATE OF CONSULTATION: 05/10/2020 REASON FOR CONSULTATION: Altered mental state and fever. HISTORY OF PRESENT ILLNESS: An 84-year-old who was last admitted in 2018, has a history of type 2 diabetes, CKD stage 3, atrial fibrillation, and diastolic CHF as well as COPD. The patient had a TAVR aortic valve done in [place] within the past year and a half and most of her admissions in 2018 and 2019 were occurred at [facility] in [place] and they were for the most part related to decompensation of her COPD with respiratory failure requiring a couple of times mechanical ventilation with quick reversal. During those admissions, she usually would show up at the emergency room in [facility] and then be transferred to [facility]. All the cultures there had been obtained from blood samples in those various admissions were negative and the urine cultures were positive for various different organisms including Enterococcus and Enterobacter cloacae, and the latest one was Nhung species. This time, she was brought in because of fever, altered mental state, weakness, and hypotension. Initial findings in the emergency room, BP 121/78, heart rate 90, temperature 100.3, and O2 saturation 91% on 3 L. She became more hypotensive and was treated with IV fluids and antimicrobial therapy. CT of chest was consistent with CHF findings. Urinalysis was abnormal. She was given broad-spectrum coverage. Blood cultures and urine cultures obtained. The urine culture demonstrated Enterobacter aerogenes and presumptive Enterococcus. The quantitation showed 10,000 to 25,000 CFUs for the gram-negative octaviano and less than 5000 CFUs per mL for the Enterococcus. The Enterobacter was resistant to cephalosporins, susceptible to quinolones and Bactrim. Currently, Ms. Cardoso is in the IMCU/CCU. She is awake, but delusional with delirium and mumbling unintelligible sounds from time to time. I cannot get her to answer any questions. She will follow commands, but after some insistence. She has had no diarrhea. She has a Manjarrez catheter inserted. PAST MEDICAL HISTORY: Includes COPD; CHF secondary to diastolic dysfunction; recent TAVR, I believe done in [place] with an echo, which I evaluated, TAVR done at [facility] showing normal function without perivalvular leak. She has had urinary tract infections in the past at least what appeared to be a UTI. None of those episodes were associated with positive blood cultures. They were treated at [facility]. She also has atrial fibrillation and a pacemaker, and also history of CKD stage 3; obesity; hypothyroidism; hypertension; hyperlipidemia; pulmonary hypertension; prior severe aortic stenosis, which was managed with TAVR. PAST SURGICAL HISTORY: Includes also a knee arthroplasty on the left side; hip arthroplasty, right and left side; shoulder arthroscopy; Mert fundoplication; hysterectomy; carpal tunnel release; cardiac pacemaker placement; laminectomy; appendectomy. ALLERGIES: BACTRIM WITH ANAPHYLAXIS, CIPRO WITH TONGUE SWELLING, TRAMADOL SAME, AND METOLAZONE WITH HALLUCINATIONS. FAMILY HISTORY: Noncontributory. CURRENT MEDICATIONS: Include, 1. Inhalers. 2. Lanoxin. 3. Cymbalta. 4. Neurontin. 5. Lopressor. 6. Warfarin. 7. Meropenem. PHYSICAL EXAMINATION: VITAL SIGNS: She had low-grade temperature elevation. Her BP is 130/70, heart rate 82, respiratory rate is 24, O2 saturations are 100% with 3 L nasal cannula. SKIN: Shows peripheral IV access and Manjarrez catheter. She has no areas of skin breakdown. No petechia or purpura. No lymphadenopathy. HEENT: Ocular movements are conjugate. I had to open her eyelids. The patient would not spontaneously open her eyelids. The right eye pupil is not discernible and she has a little bit of conjunctival hyperemia. The left side is about 2 mm and reactive. Oral cavity is still with quite a few teeth in the lower mandible, which are desiccated with periodontitis and gum disease. The patient has dentures in the upper maxilla. NECK: No jugular vein distention. No thyromegaly. LUNGS: With symmetric air entry with faint basilar crackles. HEART: S1 and S2 without obvious murmurs. No S3 or S4. Regular rate. ABDOMEN: Soft, but no guarding. Bowel sounds are present. No organomegaly. No bladder distention. No ascites. EXTREMITIES: She has obvious deformities in the knee joint on the right side. The left side has the TKR. The range of motion of hips does not elicit pain. She is able to move extremities equally, but does not follow commands. Trace edema in lower extremities. Pulses are 1+ in dorsalis pedis. NEUROLOGIC: She is obtunded and confabulating during the exam and not interacting with examiner for the most part, almost like she is talking to herself. LABORATORY DATA: SARS-CoV-2 was not detected. Her white cell count is 8.3, hemoglobin 11.4, and platelets 142. Creatinine is 1.32. Liver profile normal. Albumin 3.6. Urinalysis with 21 to 50 wbc's. The patient's bands started at 13, went down to 2, and now they are up to 29% on May 10. Microbiology with results noted above. The previous CT scans were done at [facility]. The last one was in the end of March and she had those splenic lesions, which were not present before they have developed over the past 2 or 3 months or so approximately. Some of them are cystic. Some have more solid density within the cystic lesion and the radiologist there recommended an ultrasound for further evaluation. ASSESSMENT: 1. Chronic obstructive pulmonary disease with diastolic heart failure. Her last ejection fraction recently was 68%. 2. Severe aortic stenosis with transcatheter aortic valve replacement done in [place] within the past year. 3. Atrial fibrillation/ablation with pacemaker. 4. Multiple recent admissions to [facility] for management of decompensation of her chronic obstructive pulmonary disease and diastolic heart failure, two of those required mechanical ventilation. 5. New onset of fever and delirium with leukocytosis and marked bandemia. 6. Abnormal urinalysis with positive urine culture 7. Splenic lesions DISCUSSION: The differential diagnosis includes simple invasive UTI versus a more complex process. In her case, the finding of the splenic lesions in the setting of TAVR would raise the possibility of endocarditis. Pneumonia does not seem to be present at this point in time. She does not appear to have an intraabdominal inflammatory process at least on clinical examination. We will wait on the blood cultures. We may have to submit a Karius test. We will start her with an echocardiogram and may consider then a KAILEY depending on results, and ultrasound of the left upper quadrant to compare with the hypodense lesions that were identified on [facility] CT of the abdomen recently. Job ID: [id number] MTDD
[2020-05-10] MEDS: Ciprofloxacin 500 MG TAB PO SCH (19:45)
[2020-05-11 03:44] LABS: INR-International Normal Ratio 1.4; Prothrombin Time 17.9 sec (12.0-14.7)
[2020-05-11 03:58] LABS: Band 3 % (5-11); Hemoglobin 9.5 g/dL (12.0-16.0); Hypochromia SLIGHT = 6-15 cells (100X) (0-5/hpf); Lymphocytes 2 % (21-51); MDiff Complete? YES; Mean Corpuscular HGB CONC 32.2 g/dL (32.0-36.0); Mean Corpuscular Hemoglobin 32.2 pg (27.0-31.0); Mean Platelet Volume 8.2 fL (7.4-10.4); Monocytes 21 % (0-10); Neutrophil 74 % (42-75); Platelet Count 104 thou/uL (130-400); Platelet Morphology Comment Appears Adequate; RBC Distribution Width 13.3 % (11.5-14.5); Red Blood Cell (RBC) Count 2.95 mill/uL (4.20-5.40); White Blood Cell (WBC) Count 6.3 thou/uL (4.8-10.8)
[2020-05-11 04:01] LABS: ALT (SGPT) 9 U/L (8-55); AST (SGOT) 12 U/L (5-34); Albumin 3.4 g/dL (3.4-4.8); Alkaline Phosphatase 52 U/L (40-110); Anion Gap 10 mmol/L (10-20); BUN (Urea Nitrogen) 25 mg/dL (9.8-20.1); Bilirubin, Total 0.6 mg/dL (0.2-1.2); Calc. Creatinine Clearance 68 mL/min (70-130); Calcium 9.7 mg/dL (7.8-10.44); Carbon Dioxide 33 mmol/L (23-31); Chloride 102 mmol/L (98-107); Globulin 3.3 g/dL (2.4-3.5); Glucose 107 mg/dL (83-110); Potassium 4.9 mmol/L (3.5-5.1); Protein, Total 6.7 g/dL (5.8-8.1); Sodium 140 mmol/L (136-145)
[2020-05-11] MEDS: Timolol 0.25% Ophth Soln 5 ml Bottle EA EYE SCH ×2 (08:32→19:52)
[2020-05-11] MEDS: Ciprofloxacin 500 MG TAB PO SCH (08:36)
[2020-05-11] MEDS: Digoxin 0.125 MG TAB PO SCH (08:36)
[2020-05-11] MEDS: Atorvastatin Calcium 20 MG TAB PO SCH (08:36)
[2020-05-11] MEDS: Levothyroxine Sodium 112 MCG TAB PO SCH (08:36)
[2020-05-11] MEDS: DULoxetine 30 MG CAP PO SCH (08:37)
[2020-05-11] MEDS: Gabapentin 300 MG CAP PO SCH ×2 (08:37→19:51)
[2020-05-11] MEDS: Metoprolol Tartrate 25 MG TAB PO SCH ×2 (08:37→19:52)
[2020-05-11] MEDS ORDERED: Warfarin Sodium 7.5 MG TAB PO SCH (17:00)
--- NOTE | 2020-05-11 17:09 | PDOC.HOSPP ---
- Subjective Encounter Date: 05/11/20 Encounter Time: 11:15 Subjective: drowsy but awakens easily, speaks a few words and trails off not in resp distress - Objective Vital Signs & Weight: Vital Signs (12 hours) Pulse Pulse Ox 05/11/20 08:36 117 H 05/11/20 07:17 98 05/11/20 06:55 98 Weight Admit Weight 3.069 oz Weight 218 lb 7.649 oz Most Recent Monitor Data Heart Rate from ECG 102 NIBP 151/80 NIBP BP-Mean 103 Respiration from ECG 25 SpO2 98 I&O: 05/10/20 05/11/20 05/12/20 06:59 06:59 06:59 Intake Total 642 327 Output Total 6189 2775 725 [facility]1918 -2448 -725 Result Diagrams: 05/11/20 03:30 05/11/20 03:30 Additional Labs: Accuchecks 05/11/20 05/11/20 05/10/20 10:03 03:34 21:11 POC Glucose 149 H 104 H 106 H Hospitalist ROS - Medication Medications: Active Medications Generic Name Dose Route Start Last Admin Trade Name Freq PRN Reason Stop Dose Admin Acetaminophen 650 mg 05/07/20 17:16 05/10/20 14:08 Acetaminophen 325 Mg Tab PO 650 mg Q6H PRN Administration Fever > 101 Atorvastatin Calcium 20 mg 05/07/20 09:00 05/11/20 08:36 Atorvastatin Calcium 20 Mg Tab PO Not Given DAILY KAILEY Digoxin 0.125 mg 05/07/20 09:00 05/11/20 08:36 Digoxin 0.125 Mg Tab PO Not Given DAILY [facility] Duloxetine HCl 30 mg 05/07/20 09:00 05/11/20 08:37 Duloxetine 30 Mg Cap PO Not Given DAILY KAILEY Gabapentin 300 mg 05/10/20 21:00 05/11/20 08:37 Gabapentin 300 Mg Cap PO Not Given BID KAILEY Ciprofloxacin/Dextrose 400 mg/ 200 mls @ 200 mls/hr 05/11/20 09:00 05/11/20 08:58 Device IVPB 200 mls 0900,2100 KAILEY Administration Levothyroxine Sodium 112 mcg 05/08/20 06:00 05/11/20 08:36 Levothyroxine Sodium 112 Mcg Tab PO Not Given 0600 [facility] Metoprolol Tartrate 12.5 mg 05/08/20 21:00 05/11/20 08:37 Metoprolol Tartrate 25 Mg Tab PO Not Given BID [facility] Pantoprazole Sodium 40 mg 05/09/20 09:00 05/11/20 08:37 Pantoprazole 40 Mg Tab PO Not Given DAILY KAILEY Quetiapine Fumarate 25 mg 05/10/20 21:00 05/10/20 19:45 Quetiapine Fumarate 25 Mg Tab PO 25 mg HS KAILEY Administration Sodium Chloride 10 ml 05/07/20 09:00 05/11/20 08:33 Flush - Normal Saline 10 Ml Syringe IVF 10 ml Q12HR KAILEY Administration Timolol Maleate 1 drop 05/07/20 09:00 05/11/20 08:32 Timolol 0.25% Ophth Soln 5 Ml Bottle EA EYE 1 each BID KAILEY Administration Warfarin Sodium 5 mg 05/07/20 17:00 05/10/20 16:20 Warfarin Sodium 5 Mg Tab PO 5 mg [id number]@1700 KAILEY Administration Hospitalist Exam Vitals: Vital Signs (12 hours) Pulse Pulse Ox 05/11/20 08:36 117 H 05/11/20 07:17 98 05/11/20 06:55 98 Weight Admit Weight 3.069 oz Weight 218 lb 7.649 oz Most Recent Monitor Data Heart Rate from ECG 102 NIBP 151/80 NIBP BP-Mean 103 Respiration from ECG 25 SpO2 98 Eye: PERRL, anicteric sclera ENT: no oropharyngeal lesions, dry oral mucosa Neck: supple, no JVD Heart: RRR, no murmur Respiratory: no wheezes, no rales Gastrointestinal: soft, non-tender, non-distended, normal bowel sounds Extremities: no cyanosis, no edema Neurological: cranial nerve grossly intact, no focal deficits Hosp A/P (1) Septic shock Code(s): A41.9 - SEPSIS, UNSPECIFIED ORGANISM; R65.21 - SEVERE SEPSIS WITH SEPTIC SHOCK Status: Acute (2) Urinary tract infection Status: Acute Qualifiers: Urinary tract infection type: acute cystitis Hematuria presence: without hematuria Qualified Code(s): N30.00 - Acute cystitis without hematuria (3) CHF (congestive heart failure) Code(s): I50.9 - HEART FAILURE, UNSPECIFIED Status: Chronic Qualifiers: Heart failure type: diastolic (4) COPD (chronic obstructive pulmonary disease) Status: Chronic Qualifiers: COPD type: chronic bronchitis Chronic bronchitis type: unspecified Qualified Code(s): J42 - Unspecified chronic bronchitis (5) Chronic atrial fibrillation Code(s): I48.20 - CHRONIC ATRIAL FIBRILLATION, UNSPECIFIED Status: Chronic (6) Chronic respiratory failure with hypoxia Code(s): J96.11 - CHRONIC RESPIRATORY FAILURE WITH HYPOXIA Status: Chronic (7) Diabetes mellitus type 2 in obese Code(s): E11.69 - TYPE 2 DIABETES MELLITUS WITH OTHER SPECIFIED COMPLICATION; E66.9 - OBESITY, UNSPECIFIED Status: Chronic (8) History of aortic stenosis Code(s): Z86.79 - PERSONAL HISTORY OF OTHER DISEASES OF THE CIRCULATORY SYSTEM Status: Chronic (9) Hyperlipidemia Code(s): E78.5 - HYPERLIPIDEMIA, UNSPECIFIED Status: Chronic Qualifiers: Hyperlipidemia type: mixed hyperlipidemia Qualified Code(s): E78.2 - Mixed hyperlipidemia (10) Obesity Code(s): E66.9 - OBESITY, UNSPECIFIED Status: Chronic Qualifiers: Obesity classification: adult class 1 (BMI 30 - 34.9) Body mass index: BMI 32.0-32.9 (11) Peripheral neuropathy Code(s): G62.9 - POLYNEUROPATHY, UNSPECIFIED Status: Chronic Qualifiers: Peripheral neuropathy type: polyneuropathy, unspecified Qualified Code(s): G62.9 - Polyneuropathy, unspecified (12) CKD (chronic kidney disease) stage 3, GFR 30-59 ml/min Code(s): N18.3 - CHRONIC KIDNEY DISEASE, STAGE 3 (MODERATE) * DO NOT USE * Status: Chronic (13) Physical deconditioning Code(s): R53.81 - OTHER MALAISE Status: Acute - Plan continue nebs, synthroid, digoxin, lipitor, cymbalta, neurontin, coumadin, cipro based on urine cs. PT eval, to mobilize as tolerated usg abd shows splenic lesions to be cysts, echo shows normal ef with elevated rvsp awaiting telemetry bed renal function is holding up, labs in am will need placement to rehab, lives at home alone but son is close by gentle iv hydration, pt is drowsy and has not been able to eat so far. Will dc seroquel. d/w son Shubham Platt over phone and gave full updates on 05/08/20, tried ani ling him 2/22 cant reach him, d/w son and gave update 05/11. inr is subtherapeutic still, likely due to med interaction (is off merrem x 24hrs)
[2020-05-11] MEDS ORDERED: Dextrose 5 %-0.45 % NaCl 1,000 ML IV SCH (17:15)
[2020-05-11] MEDS: Warfarin Sodium 7.5 MG TAB PO SCH (17:35)
[2020-05-12] MEDS ORDERED: Metoprolol Tartrate 25 MG TAB PO SCH (00:30)
[2020-05-12] MEDS ORDERED: Digoxin 0.125 MG TAB PO SCH (00:30)
[2020-05-12 04:08] LABS: INR-International Normal Ratio 1.7; Prothrombin Time 20.3 sec (12.0-14.7)
[2020-05-12 04:12] LABS: Band 12 % (5-11); Hemoglobin 10.3 g/dL (12.0-16.0); Lymphocytes 8 % (21-51); MDiff Complete? YES; Mean Corpuscular HGB CONC 33.2 g/dL (32.0-36.0); Mean Corpuscular Hemoglobin 32.5 pg (27.0-31.0); Mean Corpuscular Volume 98.1 fL (78.0-98.0); Mean Platelet Volume 8.7 fL (7.4-10.4); Metamyelocyte 2 % (0-0); Monocytes 14 % (0-10); Neutrophil 62 % (42-75); Platelet Count 117 thou/uL (130-400); Platelet Morphology Comment Appears Decreased; RBC Distribution Width 13.2 % (11.5-14.5); Reactive Lymphocytes 2 % (0-10); Red Blood Cell (RBC) Count 3.17 mill/uL (4.20-5.40); White Blood Cell (WBC) Count 8.3 thou/uL (4.8-10.8)
[2020-05-12 04:24] LABS: ALT (SGPT) 9 U/L (8-55); AST (SGOT) 13 U/L (5-34); Albumin 3.4 g/dL (3.4-4.8); Alkaline Phosphatase 56 U/L (40-110); Anion Gap 11 mmol/L (10-20); BUN (Urea Nitrogen) 19 mg/dL (9.8-20.1); Bilirubin, Total 0.7 mg/dL (0.2-1.2); Calc. Creatinine Clearance 85 mL/min (70-130); Calcium 9.7 mg/dL (7.8-10.44); Carbon Dioxide 34 mmol/L (23-31); Chloride 101 mmol/L (98-107); Globulin 3.5 g/dL (2.4-3.5); Glucose 112 mg/dL (83-110); Magnesium 1.7 mg/dL (1.6-2.6); Potassium 4.5 mmol/L (3.5-5.1); Protein, Total 6.9 g/dL (5.8-8.1); Sodium 141 mmol/L (136-145)
[2020-05-12] MEDS: Levothyroxine Sodium 112 MCG TAB PO SCH (05:44)
[2020-05-12] MEDS: Atorvastatin Calcium 20 MG TAB PO SCH (08:23)
[2020-05-12] MEDS: DULoxetine 30 MG CAP PO SCH (08:24)
[2020-05-12] MEDS: Digoxin 0.125 MG TAB PO SCH (08:24)
[2020-05-12] MEDS: Gabapentin 300 MG CAP PO SCH ×2 (08:24→19:34)
[2020-05-12] MEDS: Metoprolol Tartrate 25 MG TAB PO SCH ×2 (08:24→19:35)
[2020-05-12] MEDS: Timolol 0.25% Ophth Soln 5 ml Bottle EA EYE SCH ×2 (08:25→19:36)
--- NOTE | 2020-05-12 16:21 | PDOC.HOSPP ---
- Subjective Encounter Date: 05/12/20 Encounter Time: 11:00 Subjective: awake, responds to verbal stimuli has amb around 12 ft with rw and PT help - Objective Vital Signs & Weight: Vital Signs (12 hours) Temp Pulse Pulse Pulse BP BP Pulse Ox 05/12/20 09:08 87 88 148/75 H 138/72 05/12/20 08:24 89 05/12/20 07:29 99 05/12/20 07:07 100 05/12/20 06:00 98.2 F Pulse Ox Pulse Ox 05/12/20 09:08 99 100 05/12/20 08:24 05/12/20 07:29 05/12/20 07:07 05/12/20 06:00 Weight Admit Weight 3.069 oz Weight 198 lb 3.129 oz Most Recent Monitor Data Heart Rate from ECG 80 NIBP 155/94 NIBP BP-Mean 114 Respiration from ECG 22 SpO2 93 I&O: 05/11/20 05/12/20 05/13/20 06:59 06:59 06:59 Intake Total 327 1484 60 Output Total 6631 1730 600 Balance -2448 -246 -540 Result Diagrams: 05/12/20 03:40 05/12/20 03:40 Additional Labs: Accuchecks 05/12/20 05/12/20 05/11/20 11:00 03:41 20:18 POC Glucose 140 H 98 170 H Hospitalist ROS - Medication Medications: Active Medications Generic Name Dose Route Start Last Admin Trade Name Freq PRN Reason Stop Dose Admin Acetaminophen 650 mg 05/07/20 17:16 05/10/20 14:08 Acetaminophen 325 Mg Tab PO 650 mg Q6H PRN Administration Fever > 101 Atorvastatin Calcium 20 mg 05/07/20 09:00 05/12/20 08:23 Atorvastatin Calcium 20 Mg Tab PO 20 mg DAILY KAILEY Administration Digoxin 0.125 mg 05/07/20 09:00 05/12/20 08:24 Digoxin 0.125 Mg Tab PO 0.125 mg DAILY KAILEY Administration Duloxetine HCl 30 mg 05/07/20 09:00 05/12/20 08:24 Duloxetine 30 Mg Cap PO 30 mg DAILY KAILEY Administration Gabapentin 300 mg 05/10/20 21:00 05/12/20 08:24 Gabapentin 300 Mg Cap PO 300 mg BID KAILEY Administration Ciprofloxacin/Dextrose 400 mg/ 200 mls @ 200 mls/hr 02/23/21 09:00 05/12/20 08:23 Device IVPB 200 mls 0900,2100 [facility] Administration Levothyroxine Sodium 112 mcg 05/08/20 06:00 05/12/20 05:44 Levothyroxine Sodium 112 Mcg Tab PO 112 mcg 0600 KAILEY Administration Metoprolol Tartrate 12.5 mg 05/08/20 21:00 05/12/20 08:24 Metoprolol Tartrate 25 Mg Tab PO 12.5 mg BID KAILEY Administration Pantoprazole Sodium 40 mg 05/09/20 09:00 05/12/20 08:25 Pantoprazole 40 Mg Tab PO Not Given DAILY [facility] Sodium Chloride 10 ml 05/07/20 09:00 05/12/20 08:25 Flush - Normal Saline 10 Ml Syringe IVF 10 ml Q12HR [facility] Administration Timolol Maleate 1 drop 05/07/20 09:00 05/12/20 08:25 Timolol 0.25% Ophth Soln 5 Ml Bottle EA EYE 1 each BID KAILEY Administration Warfarin Sodium 5 mg 05/07/20 17:00 05/10/20 16:20 Warfarin Sodium 5 Mg Tab PO 5 mg [id number] [facility] Administration Warfarin Sodium 7.5 mg 05/11/20 17:00 05/11/20 17:35 Warfarin Sodium 7.5 Mg Tab PO 7.5 mg [id number]@1700 [facility] Administration Hospitalist Exam Vitals: Vital Signs (12 hours) Temp Pulse Pulse Pulse BP BP Pulse Ox 05/12/20 09:08 87 88 148/75 H 138/72 05/12/20 08:24 89 05/12/20 07:29 99 05/12/20 07:07 100 05/12/20 06:00 98.2 F Pulse Ox Pulse Ox 05/12/20 09:08 99 100 05/12/20 08:24 05/12/20 07:29 05/12/20 07:07 05/12/20 06:00 Weight Admit Weight 3.069 oz Weight 198 lb 3.129 oz Most Recent Monitor Data Heart Rate from ECG 80 NIBP 155/94 NIBP BP-Mean 114 Respiration from ECG 22 SpO2 93 General Appearance: awake alert Eye: PERRL, anicteric sclera ENT: no oropharyngeal lesions, dry oral mucosa Neck: supple, no JVD Heart: RRR, no murmur Respiratory: no wheezes, no rales Gastrointestinal: soft, non-tender, non-distended, normal bowel sounds Extremities: no cyanosis, no edema Neurological: cranial nerve grossly intact, no focal deficits Hosp A/P (1) Septic shock Code(s): A41.9 - SEPSIS, UNSPECIFIED ORGANISM; R65.21 - SEVERE SEPSIS WITH SEPTIC SHOCK Status: Acute (2) Urinary tract infection Status: Acute Qualifiers: Urinary tract infection type: acute cystitis Hematuria presence: without hematuria Qualified Code(s): N30.00 - Acute cystitis without hematuria (3) CHF (congestive heart failure) Code(s): I50.9 - HEART FAILURE, UNSPECIFIED Status: Chronic Qualifiers: Heart failure type: diastolic (4) COPD (chronic obstructive pulmonary disease) Status: Chronic Qualifiers: COPD type: chronic bronchitis Chronic bronchitis type: unspecified Qualified Code(s): J42 - Unspecified chronic bronchitis (5) Chronic atrial fibrillation Code(s): I48.20 - CHRONIC ATRIAL FIBRILLATION, UNSPECIFIED Status: Chronic (6) Chronic respiratory failure with hypoxia Code(s): J96.11 - CHRONIC RESPIRATORY FAILURE WITH HYPOXIA Status: Chronic (7) Diabetes mellitus type 2 in obese Code(s): E11.69 - TYPE 2 DIABETES MELLITUS WITH OTHER SPECIFIED COMPLICATION; E66.9 - OBESITY, UNSPECIFIED Status: Chronic (8) History of aortic stenosis Code(s): Z86.79 - PERSONAL HISTORY OF OTHER DISEASES OF THE CIRCULATORY SYSTEM Status: Chronic (9) Hyperlipidemia Code(s): E78.5 - HYPERLIPIDEMIA, UNSPECIFIED Status: Chronic Qualifiers: Hyperlipidemia type: mixed hyperlipidemia Qualified Code(s): E78.2 - Mixed hyperlipidemia (10) Obesity Code(s): E66.9 - OBESITY, UNSPECIFIED Status: Chronic Qualifiers: Obesity classification: adult class 1 (BMI 30 - 34.9) Body mass index: BMI 32.0-32.9 (11) Peripheral neuropathy Code(s): G62.9 - POLYNEUROPATHY, UNSPECIFIED Status: Chronic Qualifiers: Peripheral neuropathy type: polyneuropathy, unspecified Qualified Code(s): G62.9 - Polyneuropathy, unspecified (12) CKD (chronic kidney disease) stage 3, GFR 30-59 ml/min Code(s): N18.3 - CHRONIC KIDNEY DISEASE, STAGE 3 (MODERATE) * DO NOT USE * Status: Chronic (13) Physical deconditioning Code(s): R53.81 - OTHER MALAISE Status: Acute - Plan continue nebs, synthroid, digoxin, lipitor, cymbalta, neurontin, coumadin, cipro based on urine cs. PT eval, to mobilize as tolerated usg abd shows splenic lesions to be cysts, echo shows normal ef with elevated rvsp awaiting telemetry bed, may dc to [facility] bed in am if stable and is accepted. renal function is holding up, labs in am d/w son Shubham Platt over phone and gave full updates on 05/08/20, tried calling him 05/10 cant reach him, d/w son and gave update 05/11. inr is slowly increasing now. hemostable, dc in am if stable encourage po intake, ensure 1 can tid.
[2020-05-12] MEDS: Warfarin Sodium 5 MG TAB PO SCH (17:08)
[2020-05-13 04:56] LABS: INR-International Normal Ratio 2.1; Prothrombin Time 23.6 sec (12.0-14.7)
[2020-05-13 05:15] LABS: Band 2 % (5-11); Eosinophils 2 % (0-10); Hypochromia SLIGHT = 6-15 cells (100X) (0-5/hpf); Lymphocytes 11 % (21-51); MDiff Complete? YES; Mean Corpuscular HGB CONC 31.9 g/dL (32.0-36.0); Mean Corpuscular Hemoglobin 31.4 pg (27.0-31.0); Mean Corpuscular Volume 98.5 fL (78.0-98.0); Mean Platelet Volume 8.2 fL (7.4-10.4); Monocytes 11 % (0-10); Neutrophil 74 % (42-75); Platelet Count 124 thou/uL (130-400); Platelet Morphology Comment Appears Adequate; RBC Distribution Width 13.2 % (11.5-14.5); White Blood Cell (WBC) Count 8.9 thou/uL (4.8-10.8)
[2020-05-13 05:16] LABS: ALT (SGPT) 9 U/L (8-55); AST (SGOT) 16 U/L (5-34); Albumin 3.3 g/dL (3.4-4.8); Alkaline Phosphatase 50 U/L (40-110); Anion Gap 10 mmol/L (10-20); BUN (Urea Nitrogen) 19 mg/dL (9.8-20.1); Bilirubin, Total 0.5 mg/dL (0.2-1.2); Calc. Creatinine Clearance 76 mL/min (70-130); Calcium 9.5 mg/dL (7.8-10.44); Carbon Dioxide 34 mmol/L (23-31); Chloride 100 mmol/L (98-107); Globulin 3.4 g/dL (2.4-3.5); Glucose 104 mg/dL (83-110); Potassium 4.7 mmol/L (3.5-5.1); Protein, Total 6.7 g/dL (5.8-8.1); Sodium 139 mmol/L (136-145)
[2020-05-13] MEDS: Levothyroxine Sodium 112 MCG TAB PO SCH (05:52)
[2020-05-13] MEDS: DULoxetine 30 MG CAP PO SCH (08:13)
[2020-05-13] MEDS: Atorvastatin Calcium 20 MG TAB PO SCH (08:13)
[2020-05-13] MEDS: Digoxin 0.125 MG TAB PO SCH (08:13)
[2020-05-13] MEDS: Gabapentin 300 MG CAP PO SCH (08:13)
[2020-05-13] MEDS: Metoprolol Tartrate 25 MG TAB PO SCH (08:14)
[2020-05-13] MEDS: Timolol 0.25% Ophth Soln 5 ml Bottle EA EYE SCH (08:26)
--- NOTE | 2020-05-13 14:13 | DIS ---
DATE OF ADMISSION: 05/07/2020 DATE OF DISCHARGE: 05/13/2020 PRIMARY CARE PROVIDER: Tulio Schroeder MD. DISPOSITION: Discharged to [facility]. FINAL DIAGNOSES: Septic shock, urinary tract infection, chronic respiratory failure with hypoxia, diabetes mellitus type 2 with chronic kidney disease stage 3, physical deconditioning, dyslipidemia, chronic atrial fibrillation. DISCHARGE MEDICATIONS: 1. Lipitor 20 mg a day. 2. Betoptic each eye twice a day. 3. Cipro 250 mg daily x4 or 5 days. 4. Digoxin 0.125 mg a day. 5. Duloxetine 30 mg daily. 6. Levothyroxine 112 mcg daily. 7. Protonix 40 mg a day. 8. Coumadin 7.5 mg alternating with 5 mg; 5 mg this Sunday, Sunday, Sunday, Sunday and Sunday; 7.5 this Sunday, . 9. Albuterol sulfate two puffs every 4 hours p.r.n. 10. Aspirin 81 mg a day. 11. Dicyclomine 20 mg p.o. q.i.d. p.r.n. 12. Ferrous sulfate 325 mg a day. 13. Lasix 20 mg twice a day. 14. Gabapentin 600 mg twice a day. 15. Lisinopril 5 mg a day. 16. Metformin 500 mg p.o. b.i.d. 17. Metoprolol 50 mg p.o. b.i.d. ALLERGIES: ZAROXOLYN AND SULFAMETHOXAZOLE-TRIMETHOPRIM. CODE STATUS: Full. PENDING AT TIME OF DISCHARGE: Nothing. DIET: Diabetic. HOSPITAL COURSE: The patient was placed in the hospital on 05/07/2020 under Hospitalist Service. She was found to have a temperature of 101.3, blood pressure was decreased to 80/61. White cell count was 11,700, hemoglobin 9.9, platelet count 112,000. Cultures were obtained. The patient was placed in the hospital in the intensive care unit. She was placed on meropenem. She was seen in consultation by Dr. Tiago Fan. She was placed on norepinephrine. Her BUN and creatinine were elevated at that time 33/1.4. She had a lactic acid of 4.2. Lytes were balanced. Her cultures grew out Enterobacter aerogenes, sensitive to cephalosporins. She was on IV Cipro. On 05/07/2020, her hypotension resolved with pressor. She was still febrile. Her temperature elevation resolved with therapy. She was initially weaned off the pressors. She was seen in consultation also by Dr. Allan Brito on 05/10/2020. No blood cultures were obtained on 05/11/2020. She was drowsy, but awoke easily. She was continued on nebs. Renal function improved. She was hydrated gently. On 05/12/2020, she was awake, responding, ambulating in room with PT. Her INR is up to therapeutic for her atrial fibrillation. The patient is being discharged at this time to [facility] under the care of Dr. Schroeder. Most recent vital signs, blood pressure 134/64, temperature 98.2, pulse 80, respirations 16. LABORATORY DATA: Sodium 139, potassium 4.7, BUN 19, creatinine 0.77. White count 8.9, hemoglobin 10.0, platelet count 124,000. She will be followed up at the [facility] by Dr. Tulio Schroeder. She will need serial laboratory including PT/INR, CBC and basic metabolic profile during her hospital stay. Job ID: [id number]
[2020-05-13 15:54] VITALS: TEMP 97.5
[2020-05-13 16:26] VITALS: BP 161/81
[2020-05-13] MEDS: Warfarin Sodium 7.5 MG TAB PO SCH (17:21)
[2020-05-13] MEDS ORDERED: Cipro 250 MG TAB PO SCH (20:00)
== END 2020-05-13 19:43 | disposition swing bed (61) | DRG 871 ==
LOC: ERS 06:26 → ERHOLD 07:09 → IMCU/EMU 17:14 → 2SW 05-12 23:59
PROVIDERS: ADMIT Student in an Organized Health Care Education/Training Program; ATTEND Internal Medicine
PROC: 3E033XZ Introduction of Vasopressor into Peripheral Vein, Percutaneous Approach (ICD-10-PCS; principal; 2020-05-07)
DX: A41.9 Sepsis, unspecified organism (principal); R65.21 Severe sepsis with septic shock; I48.20 Chronic atrial fibrillation, unspecified; N39.0 Urinary tract infection, site not specified; J96.11 Chronic respiratory failure with hypoxia; I13.0 Hypertensive heart and chronic kidney disease with heart failure and stage 1 through stage 4 chronic kidney disease, or unspecified chronic kidney disease; I50.32 Chronic diastolic (congestive) heart failure; J44.9 Chronic obstructive pulmonary disease, unspecified; E03.9 Hypothyroidism, unspecified; M19.90 Unspecified osteoarthritis, unspecified site; E11.42 Type 2 diabetes mellitus with diabetic polyneuropathy; E78.5 Hyperlipidemia, unspecified; H40.9 Unspecified glaucoma; G89.4 Chronic pain syndrome; E66.9 Obesity, unspecified; Z96.643 Presence of artificial hip joint, bilateral; F32.9 Major depressive disorder, single episode, unspecified; E11.22 Type 2 diabetes mellitus with diabetic chronic kidney disease; N18.30 Chronic kidney disease, stage 3 unspecified; I27.20 Pulmonary hypertension, unspecified; B96.89 Other specified bacterial agents as the cause of diseases classified elsewhere; Z88.2 Allergy status to sulfonamides; Z88.8 Allergy status to other drugs, medicaments and biological substances; Z79.01 Long term (current) use of anticoagulants; Z79.84 Long term (current) use of oral hypoglycemic drugs; Z79.51 Long term (current) use of inhaled steroids; Z79.899 Other long term (current) drug therapy; Z68.34 Body mass index [BMI] 34.0-34.9, adult; Z95.2 Presence of prosthetic heart valve; Z95.0 Presence of cardiac pacemaker
CPT/HCPCS: 36415; 36416; 80053; 83605; 83735; 83880; 85007; 85027; 85610; 87077; 87086; 87186; 93005; 93010; 93306; 93975; 94760; 96365; 96366; J0744; J1940; J2185; J3490; P9047; S0028

== ENCOUNTER 2020-10-18 18:10 | Inpatient (IN) | payer MEDICARE ==
[2020-10-18 19:27] LABS: Actual Bicarbonate (HCO3a) 28.5 mEq/L (22-28); Analyzer IN Cardio ER; CO2 Tension 59.2 mmHg (35.0-45.0); Calcium, Ionized (arterial) 1.22 mmol/L (1.12-1.30); Carboxyhemoglobin (COHb) 0.7 gm% (0.0-3.0); O2 Tension (PaO2), arterial 71.1 mmHg (> 60.0); Potassium - ABG Lab 5.12 mmol/L (3.70-5.30)
[2020-10-18 19:29] LABS: Puncture Site RRA
[2020-10-18] MEDS ORDERED: Acetaminophen 650 MG Suppository PR PRN (20:51)
[2020-10-18] MEDS ORDERED: Ondansetron PF 4 MG/2 ML Vial IVP PRN (20:51)
[2020-10-18] MEDS ORDERED: Acetaminophen 325 MG TAB PO PRN (20:51)
[2020-10-18] MEDS ORDERED: Ondansetron ODT 4 MG TAB PO PRN (20:51)
[2020-10-18] MEDS ORDERED: Dextrose 50% Abboject 50 ML SYRINGE SLOW IVP PRN (21:02)
[2020-10-18] MEDS ORDERED: Dextrose 5% in Water 1,000 ML IV PRN (21:02)
[2020-10-18] MEDS ORDERED: HumaLOG 300 UNITS/3 ML VIAL SC PRN ×2 (21:02)
[2020-10-18 22:20] LABS: INR-International Normal Ratio 1.2; Prothrombin Time 15.6 sec (12.0-14.7)
[2020-10-19 04:45] LABS: #Lymphocytes 0.5 thou/uL (1.20-3.40); #Monocytes 0.1 thou/uL (0.11-0.59); #Neutrophils 3.7 thou/uL (1.40-6.50); %Basophils 0.1 % (0.0-1.0); %Eosinophils 0.4 % (0.0-10.0); %Lymphocytes 12.1 % (21.0-51.0); %Monocytes 2.2 % (0.0-10.0); %Neutrophils 85.2 % (42.0-75.0); Hemoglobin 11.5 g/dL (12.0-16.0); Mean Corpuscular HGB CONC 30.6 g/dL (32.0-36.0); Mean Corpuscular Hemoglobin 31.6 pg (27.0-31.0); Mean Platelet Volume 8.7 fL (7.4-10.4); Platelet Count 123 thou/uL (130-400); RBC Distribution Width 16.3 % (11.5-14.5); Red Blood Cell (RBC) Count 3.63 mill/uL (4.20-5.40); White Blood Cell (WBC) Count 4.3 thou/uL (4.8-10.8)
[2020-10-19 05:04] LABS: Anion Gap 14 mmol/L (10-20); BUN (Urea Nitrogen) 40 mg/dL (9.8-20.1); Calc. Creatinine Clearance 33 mL/min (70-130); Calcium 9.1 mg/dL (7.8-10.44); Carbon Dioxide 30 mmol/L (23-31); Chloride 99 mmol/L (98-107); Glucose 153 mg/dL (83-110); Potassium 5.3 mmol/L (3.5-5.1); Sodium 138 mmol/L (136-145)
[2020-10-19] MEDS ORDERED: Furosemide 40 MG/4 ML VIAL ONE ×2 (06:40→15:08)
[2020-10-19] MEDS: Furosemide 40 MG/4 ML VIAL SLOW IVP SCH ×2 (06:54→15:00)
[2020-10-19] MEDS ORDERED: Senokot S 8.6-50 MG TAB PO PRN (08:01)
[2020-10-19] MEDS ORDERED: Loperamide HCl 2 MG CAP PO PRN (08:01)
[2020-10-19] MEDS ORDERED: Benzonatate 100 MG CAP PO PRN (08:01)
[2020-10-19] MEDS ORDERED: Artificial Tear Sol 15 ML BOT EA EYE PRN (08:01)
[2020-10-19] MEDS ORDERED: Cepastat Lozenges 1 LOZ PO PRN (08:01)
[2020-10-19] MEDS ORDERED: Temazepam 15 MG CAP PO PRN (08:01)
[2020-10-19] MEDS ORDERED: Sodium Chloride 0.65% Nasal 44 ML BOT EA NARE PRN (08:01)
[2020-10-19] MEDS ORDERED: Loratadine 10 MG TAB PO PRN (08:01)
[2020-10-19] MEDS ORDERED: hydrALAZINE 20 MG/ML VIAL SLOW IVP PRN (08:01)
[2020-10-19] MEDS ORDERED: GUAIFENESIN SF SOLN 200 MG/10 ML UDCUP PO PRN (08:01)
[2020-10-19] MEDS ORDERED: Calcium Carbonate 500 MG ChewTAB PO PRN (08:01)
[2020-10-19] MEDS ORDERED: Bisacodyl 5 MG TAB PO PRN (08:01)
[2020-10-19] MEDS ORDERED: Hydrocerin (Eucerin) Cream 120 gm Jar TOP PRN (08:01)
[2020-10-19] MEDS ORDERED: Non-Formulary Item 1 EACH (Brimonidine Tartrate [Brimonidine Tartrate 0.15% Ophth Soln] 1 EA EYE SCH (09:00)
[2020-10-19] MEDS ORDERED: Aspirin Chewable 81 MG TAB ONE (11:30)
[2020-10-19] MEDS ORDERED: Enoxaparin Sodium 40 MG/0.4 ML SYRINGE ONE (11:30)
[2020-10-19] MEDS ORDERED: Thiamine 100 MG TAB ONE (11:30)
[2020-10-19] MEDS ORDERED: Folic Acid 1 MG TAB ONE (11:30)
[2020-10-19] MEDS: DULoxetine 30 MG CAP PO SCH (11:42)
[2020-10-19] MEDS: Atorvastatin Calcium 10 MG TAB PO SCH (11:42)
[2020-10-19] MEDS: Aspirin Chewable 81 MG TAB PO SCH (11:42)
[2020-10-19] MEDS: Brimonidine Tartrate 0.2% Ophth Soln 5 ml Bottle EA EYE SCH ×2 (11:42→16:46)
[2020-10-19] MEDS: Cyanocobalamin (Vitamin B-12) 1,000 MCG TAB PO SCH (11:42)
[2020-10-19] MEDS: Enoxaparin Sodium 40 MG/0.4 ML SYRINGE SC SCH (11:42)
[2020-10-19] MEDS: Dorzolamide HCl 2% Ophth Soln 10 ml Bottle R EYE SCH ×2 (11:42→16:46)
[2020-10-19] MEDS: Gabapentin 300 MG CAP PO SCH (11:43)
[2020-10-19] MEDS: Folic Acid 1 MG TAB PO SCH (11:43)
[2020-10-19] MEDS: Multivitamin W/ Minerals 1 TAB PO SCH (11:44)
[2020-10-19] MEDS: Thiamine 100 MG TAB PO SCH (11:44)
[2020-10-19] MEDS: Timolol 0.25% Ophth Soln 5 ml Bottle EA EYE SCH (16:45)
[2020-10-19] MEDS: Pilocarpine 1% Ophth Drops 15 ML BOT EA EYE SCH ×2 (16:45→18:54)
[2020-10-19] MEDS ORDERED: cefTRIAXone\\ROCEPHIN 1 GM VIAL ONE (18:55)
[2020-10-19] MEDS: cefTRIAXone\\ROCEPHIN 1 GM in Sodium Chloride 0.9% 100 ML IVPB SCH (19:01)
[2020-10-19 23:50] VITALS: BMI 33.5
[2020-10-20] MEDS: Pilocarpine 1% Ophth Drops 15 ML BOT EA EYE SCH ×5 (01:11→20:48)
[2020-10-20] MEDS: Gabapentin 300 MG CAP PO SCH ×3 (01:11→20:49)
[2020-10-20] MEDS: Dorzolamide HCl 2% Ophth Soln 10 ml Bottle R EYE SCH ×4 (01:12→20:48)
[2020-10-20] MEDS: Brimonidine Tartrate 0.2% Ophth Soln 5 ml Bottle EA EYE SCH ×4 (01:12→20:48)
[2020-10-20] MEDS: Timolol 0.25% Ophth Soln 5 ml Bottle EA EYE SCH ×3 (01:13→20:51)
[2020-10-20 04:52] LABS: #Eosinphils 0.1 thou/uL (0.0-0.7); #Monocytes 0.8 thou/uL (0.11-0.59); #Neutrophils 4.9 thou/uL (1.40-6.50); %Basophils 0.5 % (0.0-1.0); %Eosinophils 1.3 % (0.0-10.0); %Lymphocytes 14.4 % (21.0-51.0); %Monocytes 11.2 % (0.0-10.0); %Neutrophils 72.6 % (42.0-75.0); Hemoglobin 10.2 g/dL (12.0-16.0); Mean Corpuscular HGB CONC 31.2 g/dL (32.0-36.0); Mean Corpuscular Hemoglobin 32.4 pg (27.0-31.0); Mean Platelet Volume 8.6 fL (7.4-10.4); Platelet Count 128 thou/uL (130-400); RBC Distribution Width 16.6 % (11.5-14.5); Red Blood Cell (RBC) Count 3.16 mill/uL (4.20-5.40); White Blood Cell (WBC) Count 6.8 thou/uL (4.8-10.8)
[2020-10-20 04:59] LABS: INR-International Normal Ratio 1.2; Prothrombin Time 15.2 sec (12.0-14.7)
[2020-10-20 05:15] LABS: ALT (SGPT) 14 U/L (8-55); AST (SGOT) 15 U/L (5-34); Albumin 3.3 g/dL (3.4-4.8); Alkaline Phosphatase 97 U/L (40-110); Anion Gap 11 mmol/L (10-20); BUN (Urea Nitrogen) 47 mg/dL (9.8-20.1); Bilirubin, Total 0.3 mg/dL (0.2-1.2); Calc. Creatinine Clearance 28 mL/min (70-130); Carbon Dioxide 33 mmol/L (23-31); Chloride 99 mmol/L (98-107); Globulin 3.4 g/dL (2.4-3.5); Glucose 110 mg/dL (83-110); Magnesium 2.5 mg/dL (1.6-2.6); Phosphorus 4.6 mg/dL (2.3-4.7); Potassium 4.5 mmol/L (3.5-5.1); Protein, Total 6.7 g/dL (5.8-8.1); Sodium 138 mmol/L (136-145); Uric Acid 11.8 mg/dL (2.6-6.0)
[2020-10-20] MEDS: Furosemide 40 MG/4 ML VIAL SLOW IVP SCH (05:21)
[2020-10-20] MEDS: Levothyroxine Sodium 112 MCG TAB PO SCH (05:21)
[2020-10-20] MEDS: DULoxetine 30 MG CAP PO SCH (10:04)
[2020-10-20] MEDS: Cyanocobalamin (Vitamin B-12) 1,000 MCG TAB PO SCH (10:05)
[2020-10-20] MEDS: Multivitamin W/ Minerals 1 TAB PO SCH (10:05)
[2020-10-20] MEDS: Atorvastatin Calcium 10 MG TAB PO SCH (10:05)
[2020-10-20] MEDS: Thiamine 100 MG TAB PO SCH (10:05)
[2020-10-20] MEDS: Aspirin Chewable 81 MG TAB PO SCH (10:06)
[2020-10-20] MEDS: Folic Acid 1 MG TAB PO SCH (10:07)
[2020-10-20] MEDS: Enoxaparin Sodium 30 MG/0.3 ML SYRINGE SC SCH (10:41)
[2020-10-20] MEDS: Enoxaparin Sodium 40 MG/0.4 ML SYRINGE SC SCH (11:47)
[2020-10-20 12:32] LABS: Digoxin 0.77 ng/mL (0.8-2.0)
[2020-10-20] MEDS ORDERED: metFORMIN 500 MG TAB PO SCH (17:00)
[2020-10-20] MEDS ORDERED: Warfarin Sodium 3 MG TAB PO SCH (17:00)
[2020-10-20] MEDS: cefTRIAXone\\ROCEPHIN 1 GM in Sodium Chloride 0.9% 100 ML IVPB SCH (17:30)
[2020-10-20] MEDS: Latanoprost 0.005% Ophth Soln 2.5 ml Bottle EA EYE SCH (20:48)
[2020-10-20] MEDS: Metoprolol Tartrate 50 MG TAB PO SCH (20:49)
[2020-10-21 05:14] LABS: Hemoglobin A1c 5.6 % (4.0-6.0)
[2020-10-21] MEDS: Levothyroxine Sodium 112 MCG TAB PO SCH (05:41)
[2020-10-21] MEDS: Multivitamin W/ Minerals 1 TAB PO SCH (08:35)
[2020-10-21] MEDS: Digoxin 0.125 MG TAB PO SCH (08:35)
[2020-10-21] MEDS: Folic Acid 1 MG TAB PO SCH (08:35)
[2020-10-21] MEDS: DULoxetine 30 MG CAP PO SCH (08:35)
[2020-10-21] MEDS: Cyanocobalamin (Vitamin B-12) 1,000 MCG TAB PO SCH (08:36)
[2020-10-21] MEDS: Enoxaparin Sodium 30 MG/0.3 ML SYRINGE SC SCH (08:36)
[2020-10-21] MEDS: Dorzolamide HCl 2% Ophth Soln 10 ml Bottle R EYE SCH ×3 (08:36→20:50)
[2020-10-21] MEDS: Thiamine 100 MG TAB PO SCH (08:36)
[2020-10-21] MEDS: Metoprolol Tartrate 50 MG TAB PO SCH ×2 (08:36→20:50)
[2020-10-21] MEDS: Brimonidine Tartrate 0.2% Ophth Soln 5 ml Bottle EA EYE SCH ×3 (08:36→20:51)
[2020-10-21] MEDS: Aspirin Chewable 81 MG TAB PO SCH (08:36)
[2020-10-21] MEDS: Gabapentin 300 MG CAP PO SCH ×2 (08:36→20:50)
[2020-10-21] MEDS: Timolol 0.25% Ophth Soln 5 ml Bottle EA EYE SCH ×2 (08:37→20:51)
[2020-10-21] MEDS: Pilocarpine 1% Ophth Drops 15 ML BOT EA EYE SCH ×4 (08:37→20:51)
[2020-10-21 09:17] LABS: Bacteria/HPF None Seen HPF (None Seen); Bilirubin Negative (Negative); Blood, Urine Negative (Negative); Clarity Clear (Clear); Glucose, Urine (Dipstick) Normal (Negative); Ketone, Urine Negative (Negative); Leukocyte Negative Leu/uL (Negative); Nitrite Negative (Negative); Protein, Urine (Dipstick) 20 mg/dL (Neg-Trace); RBC/HPF None Seen HPF (0-3); Specific Gravity, Urine 1.015 (1.002-1.036); Squamous Epithelial 0-3 HPF (0-3); Urobilinogen Normal mg/dL (Less than 2); WBC/HPF 0-3 HPF (0-3)
[2020-10-21 09:19] LABS: Urine Culture Reflex No No
[2020-10-21] MEDS: Atorvastatin Calcium 10 MG TAB PO SCH (20:49)
[2020-10-21] MEDS: Latanoprost 0.005% Ophth Soln 2.5 ml Bottle EA EYE SCH (20:51)
[2020-10-22] MEDS ORDERED: Sterile Water 10 ML VIAL FS PRN (00:15)
[2020-10-22] MEDS ORDERED: OLANZapine 10 MG VIAL IM SCH (00:30)
[2020-10-22 05:24] LABS: Anion Gap 11 mmol/L (10-20); BUN (Urea Nitrogen) 29 mg/dL (9.8-20.1); Calc. Creatinine Clearance 39 mL/min (70-130); Calcium 9.3 mg/dL (7.8-10.44); Carbon Dioxide 35 mmol/L (23-31); Chloride 98 mmol/L (98-107); Glucose 135 mg/dL (83-110); Potassium 4.9 mmol/L (3.5-5.1); Sodium 139 mmol/L (136-145)
[2020-10-22] MEDS: Levothyroxine Sodium 112 MCG TAB PO SCH (05:47)
[2020-10-22] MEDS: DULoxetine 30 MG CAP PO SCH (09:22)
[2020-10-22] MEDS: Multivitamin W/ Minerals 1 TAB PO SCH (09:22)
[2020-10-22] MEDS: Digoxin 0.125 MG TAB PO SCH (09:22)
[2020-10-22] MEDS: Gabapentin 300 MG CAP PO SCH ×2 (09:22→22:38)
[2020-10-22] MEDS: Thiamine 100 MG TAB PO SCH (09:22)
[2020-10-22] MEDS: Folic Acid 1 MG TAB PO SCH (09:23)
[2020-10-22] MEDS: Metoprolol Tartrate 50 MG TAB PO SCH ×2 (09:23→22:39)
[2020-10-22] MEDS: Enoxaparin Sodium 30 MG/0.3 ML SYRINGE SC SCH (09:23)
[2020-10-22] MEDS: Aspirin Chewable 81 MG TAB PO SCH (09:23)
[2020-10-22] MEDS: Cyanocobalamin (Vitamin B-12) 1,000 MCG TAB PO SCH (09:23)
[2020-10-22] MEDS: Pilocarpine 1% Ophth Drops 15 ML BOT EA EYE SCH ×4 (09:24→22:09)
[2020-10-22] MEDS: Timolol 0.25% Ophth Soln 5 ml Bottle EA EYE SCH ×2 (09:25→22:08)
[2020-10-22] MEDS: Brimonidine Tartrate 0.2% Ophth Soln 5 ml Bottle EA EYE SCH ×3 (09:25→22:09)
[2020-10-22] MEDS: Dorzolamide HCl 2% Ophth Soln 10 ml Bottle R EYE SCH ×3 (09:25→22:07)
[2020-10-22 16:23] LABS: Actual Bicarbonate (HCO3a) 36.3 mEq/L (22-28); Base Excess (BEa) 7.6 mEq/L (-2.0 to +3.0); Calcium, Ionized (arterial) 1.25 mmol/L (1.12-1.30); Carboxyhemoglobin (COHb) 1.7 gm% (0.0-3.0); O2 Tension (PaO2), arterial 80.6 mmHg (> 60.0); Potassium - ABG Lab 4.91 mmol/L (3.70-5.30); pH, Arterial 7.31 (7.35-7.45)
[2020-10-22 16:26] LABS: CO2 Tension 74.4 mmHg (35.0-45.0); Puncture Site RRA
[2020-10-22] MEDS: Latanoprost 0.005% Ophth Soln 2.5 ml Bottle EA EYE SCH (22:09)
[2020-10-22] MEDS: Atorvastatin Calcium 10 MG TAB PO SCH (22:38)
[2020-10-23] MEDS: Levothyroxine Sodium 112 MCG TAB PO SCH (06:34)
[2020-10-23] MEDS: Aspirin Chewable 81 MG TAB PO SCH (09:36)
[2020-10-23] MEDS: Brimonidine Tartrate 0.2% Ophth Soln 5 ml Bottle EA EYE SCH ×3 (09:37→21:22)
[2020-10-23] MEDS: Cyanocobalamin (Vitamin B-12) 1,000 MCG TAB PO SCH (09:38)
[2020-10-23] MEDS: Digoxin 0.125 MG TAB PO SCH (09:38)
[2020-10-23] MEDS: Enoxaparin Sodium 30 MG/0.3 ML SYRINGE SC SCH (09:39)
[2020-10-23] MEDS: DULoxetine 30 MG CAP PO SCH (09:39)
[2020-10-23] MEDS: Dorzolamide HCl 2% Ophth Soln 10 ml Bottle R EYE SCH ×3 (09:39→21:22)
[2020-10-23] MEDS: Gabapentin 300 MG CAP PO SCH ×3 (09:40→22:34)
[2020-10-23] MEDS: Thiamine 100 MG TAB PO SCH (09:40)
[2020-10-23] MEDS: Metoprolol Tartrate 50 MG TAB PO SCH ×3 (09:41→22:34)
[2020-10-23] MEDS: Pilocarpine 1% Ophth Drops 15 ML BOT EA EYE SCH ×4 (09:41→21:23)
[2020-10-23] MEDS: Folic Acid 1 MG TAB PO SCH (09:41)
[2020-10-23] MEDS: Multivitamin W/ Minerals 1 TAB PO SCH (09:41)
[2020-10-23] MEDS: Timolol 0.25% Ophth Soln 5 ml Bottle EA EYE SCH ×2 (09:42→21:23)
[2020-10-23] MEDS: Latanoprost 0.005% Ophth Soln 2.5 ml Bottle EA EYE SCH (21:22)
[2020-10-23] MEDS: Atorvastatin Calcium 10 MG TAB PO SCH ×2 (21:24→22:34)
[2020-10-24 04:28] LABS: #Eosinphils 0.3 thou/uL (0.0-0.7); #Lymphocytes 0.8 thou/uL (1.20-3.40); #Monocytes 0.6 thou/uL (0.11-0.59); #Neutrophils 3.9 thou/uL (1.40-6.50); %Basophils 0.3 % (0.0-1.0); %Eosinophils 5.7 % (0.0-10.0); %Lymphocytes 14.1 % (21.0-51.0); %Neutrophils 69.9 % (42.0-75.0); Hemoglobin 9.5 g/dL (12.0-16.0); Mean Corpuscular HGB CONC 29.9 g/dL (32.0-36.0); Mean Corpuscular Hemoglobin 31.1 pg (27.0-31.0); Mean Platelet Volume 8.5 fL (7.4-10.4); Platelet Count 106 thou/uL (130-400); RBC Distribution Width 15.6 % (11.5-14.5); Red Blood Cell (RBC) Count 3.07 mill/uL (4.20-5.40); White Blood Cell (WBC) Count 5.5 thou/uL (4.8-10.8)
[2020-10-24 04:48] LABS: Anion Gap 8 mmol/L (10-20); BUN (Urea Nitrogen) 29 mg/dL (9.8-20.1); Calc. Creatinine Clearance 54 mL/min (70-130); Carbon Dioxide 37 mmol/L (23-31); Chloride 102 mmol/L (98-107); Glucose 75 mg/dL (83-110); Potassium 4.6 mmol/L (3.5-5.1); Sodium 142 mmol/L (136-145)
[2020-10-24] MEDS: Levothyroxine Sodium 112 MCG TAB PO SCH (06:29)
[2020-10-24] MEDS: Brimonidine Tartrate 0.2% Ophth Soln 5 ml Bottle EA EYE SCH ×3 (10:10→20:36)
[2020-10-24] MEDS: Aspirin Chewable 81 MG TAB PO SCH (10:10)
[2020-10-24] MEDS: Cyanocobalamin (Vitamin B-12) 1,000 MCG TAB PO SCH (10:10)
[2020-10-24] MEDS: DULoxetine 30 MG CAP PO SCH (10:11)
[2020-10-24] MEDS: Gabapentin 300 MG CAP PO SCH ×2 (10:11→20:36)
[2020-10-24] MEDS: Pilocarpine 1% Ophth Drops 15 ML BOT EA EYE SCH ×4 (10:11→20:34)
[2020-10-24] MEDS: Folic Acid 1 MG TAB PO SCH (10:11)
[2020-10-24] MEDS: Multivitamin W/ Minerals 1 TAB PO SCH (10:11)
[2020-10-24] MEDS: Dorzolamide HCl 2% Ophth Soln 10 ml Bottle R EYE SCH ×3 (10:11→20:43)
[2020-10-24] MEDS: Metoprolol Tartrate 50 MG TAB PO SCH ×2 (10:11→20:35)
[2020-10-24] MEDS: Enoxaparin Sodium 30 MG/0.3 ML SYRINGE SC SCH (10:11)
[2020-10-24] MEDS: Digoxin 0.125 MG TAB PO SCH (10:11)
[2020-10-24] MEDS: Thiamine 100 MG TAB PO SCH (10:12)
[2020-10-24] MEDS: Timolol 0.25% Ophth Soln 5 ml Bottle EA EYE SCH ×2 (10:12→20:41)
[2020-10-24] MEDS: Atorvastatin Calcium 10 MG TAB PO SCH (20:35)
[2020-10-24] MEDS: Latanoprost 0.005% Ophth Soln 2.5 ml Bottle EA EYE SCH (20:43)
[2020-10-25] MEDS: Levothyroxine Sodium 112 MCG TAB PO SCH (06:06)
[2020-10-25] MEDS: Gabapentin 300 MG CAP PO SCH ×2 (10:11→20:18)
[2020-10-25] MEDS: Multivitamin W/ Minerals 1 TAB PO SCH (10:11)
[2020-10-25] MEDS: Aspirin Chewable 81 MG TAB PO SCH (10:11)
[2020-10-25] MEDS: Enoxaparin Sodium 30 MG/0.3 ML SYRINGE SC SCH (10:11)
[2020-10-25] MEDS: Metoprolol Tartrate 50 MG TAB PO SCH ×2 (10:11→20:18)
[2020-10-25] MEDS: Timolol 0.25% Ophth Soln 5 ml Bottle EA EYE SCH ×2 (10:12→20:20)
[2020-10-25] MEDS: Digoxin 0.125 MG TAB PO SCH (10:12)
[2020-10-25] MEDS: Folic Acid 1 MG TAB PO SCH (10:12)
[2020-10-25] MEDS: Cyanocobalamin (Vitamin B-12) 1,000 MCG TAB PO SCH (10:12)
[2020-10-25] MEDS: DULoxetine 30 MG CAP PO SCH (10:12)
[2020-10-25] MEDS: Thiamine 100 MG TAB PO SCH (10:12)
[2020-10-25] MEDS: Dorzolamide HCl 2% Ophth Soln 10 ml Bottle R EYE SCH ×3 (10:12→20:19)
[2020-10-25] MEDS: Pilocarpine 1% Ophth Drops 15 ML BOT EA EYE SCH ×4 (10:13→20:20)
[2020-10-25] MEDS: Brimonidine Tartrate 0.2% Ophth Soln 5 ml Bottle EA EYE SCH ×3 (10:13→20:19)
[2020-10-25] MEDS: Atorvastatin Calcium 10 MG TAB PO SCH (20:18)
[2020-10-25] MEDS: Latanoprost 0.005% Ophth Soln 2.5 ml Bottle EA EYE SCH (20:20)
[2020-10-26 04:55] LABS: #Eosinphils 0.4 thou/uL (0.0-0.7); #Lymphocytes 0.8 thou/uL (1.20-3.40); #Monocytes 0.5 thou/uL (0.11-0.59); #Neutrophils 3.4 thou/uL (1.40-6.50); %Eosinophils 7.7 % (0.0-10.0); %Lymphocytes 16.1 % (21.0-51.0); %Monocytes 9.4 % (0.0-10.0); %Neutrophils 66.9 % (42.0-75.0); Mean Corpuscular Hemoglobin 32.6 pg (27.0-31.0); Mean Platelet Volume 8.9 fL (7.4-10.4); Platelet Count 89 thou/uL (130-400); RBC Distribution Width 15.1 % (11.5-14.5); Red Blood Cell (RBC) Count 3.07 mill/uL (4.20-5.40); White Blood Cell (WBC) Count 5.1 thou/uL (4.8-10.8)
[2020-10-26 05:34] LABS: ALT (SGPT) 10 U/L (8-55); AST (SGOT) 17 U/L (5-34); Albumin 2.9 g/dL (3.4-4.8); Alkaline Phosphatase 79 U/L (40-110); Anion Gap 9 mmol/L (10-20); BUN (Urea Nitrogen) 22 mg/dL (9.8-20.1); Bilirubin, Total 0.6 mg/dL (0.2-1.2); Calc. Creatinine Clearance 55 mL/min (70-130); Calcium 9.1 mg/dL (7.8-10.44); Carbon Dioxide 37 mmol/L (23-31); Chloride 99 mmol/L (98-107); Globulin 3.3 g/dL (2.4-3.5); Glucose 100 mg/dL (83-110); Potassium 4.7 mmol/L (3.5-5.1); Protein, Total 6.2 g/dL (5.8-8.1); Sodium 140 mmol/L (136-145)
[2020-10-26] MEDS: Levothyroxine Sodium 112 MCG TAB PO SCH (05:54)
[2020-10-26] MEDS: Dorzolamide HCl 2% Ophth Soln 10 ml Bottle R EYE SCH ×3 (08:07→21:21)
[2020-10-26] MEDS: Timolol 0.25% Ophth Soln 5 ml Bottle EA EYE SCH ×2 (08:08→21:21)
[2020-10-26] MEDS: Aspirin Chewable 81 MG TAB PO SCH (08:08)
[2020-10-26] MEDS: Digoxin 0.125 MG TAB PO SCH (08:08)
[2020-10-26] MEDS: Brimonidine Tartrate 0.2% Ophth Soln 5 ml Bottle EA EYE SCH ×3 (08:08→21:21)
[2020-10-26] MEDS: Folic Acid 1 MG TAB PO SCH (08:09)
[2020-10-26] MEDS: Cyanocobalamin (Vitamin B-12) 1,000 MCG TAB PO SCH (08:09)
[2020-10-26] MEDS: Multivitamin W/ Minerals 1 TAB PO SCH (08:09)
[2020-10-26] MEDS: Metoprolol Tartrate 50 MG TAB PO SCH ×2 (08:09→21:20)
[2020-10-26] MEDS: DULoxetine 30 MG CAP PO SCH (08:09)
[2020-10-26] MEDS: Thiamine 100 MG TAB PO SCH (08:09)
[2020-10-26] MEDS: Gabapentin 300 MG CAP PO SCH ×2 (08:09→21:20)
[2020-10-26] MEDS: Pilocarpine 1% Ophth Drops 15 ML BOT EA EYE SCH ×4 (08:11→21:21)
[2020-10-26] MEDS: Enoxaparin Sodium 30 MG/0.3 ML SYRINGE SC SCH (08:11)
[2020-10-26 15:15] VITALS: BP 165/88; TEMP 98.2
[2020-10-26] MEDS: Atorvastatin Calcium 10 MG TAB PO SCH (21:20)
[2020-10-26] MEDS: Latanoprost 0.005% Ophth Soln 2.5 ml Bottle EA EYE SCH (21:21)
== END 2020-10-26 22:11 | DRG 682 ==
LOC: ERS 18:10 → ERHOLD 19:29 → 2NO 10-19 22:14
PROVIDERS: ADMIT Internal Medicine; ATTEND Internal Medicine
PROC: 5A09357 Assistance with Respiratory Ventilation, Less than 24 Consecutive Hours, Continuous Positive Airway Pressure (ICD-10-PCS; principal; 2020-10-22)
DX: N17.9 Acute kidney failure, unspecified (principal); J96.21 Acute and chronic respiratory failure with hypoxia; G93.41 Metabolic encephalopathy; I13.0 Hypertensive heart and chronic kidney disease with heart failure and stage 1 through stage 4 chronic kidney disease, or unspecified chronic kidney disease; J44.1 Chronic obstructive pulmonary disease with (acute) exacerbation; I48.20 Chronic atrial fibrillation, unspecified; I50.32 Chronic diastolic (congestive) heart failure; E03.9 Hypothyroidism, unspecified; M19.90 Unspecified osteoarthritis, unspecified site; G89.4 Chronic pain syndrome; E66.9 Obesity, unspecified; E11.42 Type 2 diabetes mellitus with diabetic polyneuropathy; Z96.643 Presence of artificial hip joint, bilateral; E87.5 Hyperkalemia; E11.22 Type 2 diabetes mellitus with diabetic chronic kidney disease; I27.20 Pulmonary hypertension, unspecified; E11.69 Type 2 diabetes mellitus with other specified complication; D53.9 Nutritional anemia, unspecified; G47.33 Obstructive sleep apnea (adult) (pediatric); R13.10 Dysphagia, unspecified; N18.31 Chronic kidney disease, stage 3a; R53.81 Other malaise; Z20.822 Contact with and (suspected) exposure to COVID-19; Z88.1 Allergy status to other antibiotic agents; Z88.2 Allergy status to sulfonamides; Z88.8 Allergy status to other drugs, medicaments and biological substances; Z79.82 Long term (current) use of aspirin; Z79.84 Long term (current) use of oral hypoglycemic drugs; Z79.01 Long term (current) use of anticoagulants; Z79.51 Long term (current) use of inhaled steroids; Z79.899 Other long term (current) drug therapy; Z95.0 Presence of cardiac pacemaker; Z86.79 Personal history of other diseases of the circulatory system; Z95.3 Presence of xenogenic heart valve; Z68.32 Body mass index [BMI] 32.0-32.9, adult
CPT/HCPCS: 36415; 36416; 36600; 70450; 71045; 80048; 80053; 80162; 81001; 82805; 83036; 83735; 83880; 84100; 84145; 84443; 84484; 84550; 85025; 85610; 93306; 93798; 94640; 94660; 99285; J0696; J1650; J1940; J2358; J3490; J7620

== ENCOUNTER 2020-10-29 07:39 | Outpatient (CLI) | payer MEDICARE | END 2020-10-29 07:40 | disposition home or self-care (01) | LOC: HS RAD 07:39 | PROVIDERS: ATTEND Internal Medicine | DX: I50.9 Heart failure, unspecified (principal) | CPT/HCPCS: 71045 ==

== ENCOUNTER 2020-11-16 03:23 | Inpatient (IN) | payer MEDICARE ==
[2020-11-16 04:39] LABS: #Eosinphils 0.2 thou/uL (0.0-0.7); #Lymphocytes 0.9 thou/uL (1.20-3.40); #Monocytes 0.7 thou/uL (0.11-0.59); #Neutrophils 5.4 thou/uL (1.40-6.50); %Basophils 0.6 % (0.0-1.0); %Eosinophils 2.5 % (0.0-10.0); %Lymphocytes 12.3 % (21.0-51.0); %Monocytes 9.7 % (0.0-10.0); %Neutrophils 74.9 % (42.0-75.0); Hemoglobin 9.7 g/dL (12.0-16.0); Mean Corpuscular Hemoglobin 31.7 pg (27.0-31.0); Mean Platelet Volume 8.9 fL (7.4-10.4); Platelet Count 109 thou/uL (130-400); RBC Distribution Width 14.8 % (11.5-14.5); Red Blood Cell (RBC) Count 3.06 mill/uL (4.20-5.40); White Blood Cell (WBC) Count 7.2 thou/uL (4.8-10.8)
[2020-11-16 04:52] LABS: ALT (SGPT) 10 U/L (8-55); AST (SGOT) 13 U/L (5-34); Albumin 3.4 g/dL (3.4-4.8); Alkaline Phosphatase 72 U/L (40-110); BUN (Urea Nitrogen) 45 mg/dL (9.8-20.1); Bilirubin, Total 0.8 mg/dL (0.2-1.2); Calc. Creatinine Clearance 0 mL/min (70-130); Calcium 9.8 mg/dL (7.8-10.44); Globulin 3.7 g/dL (2.4-3.5); Glucose 79 mg/dL (83-110); Protein, Total 7.1 g/dL (5.8-8.1)
[2020-11-16 05:01] LABS: Anion Gap 13 mmol/L (10-20); Carbon Dioxide 38 mmol/L (23-31); Chloride 95 mmol/L (98-107); Potassium 3.9 mmol/L (3.5-5.1); Sodium 142 mmol/L (136-145)
[2020-11-16 05:14] LABS: SARS-CoV-2 NAA Rapid Test Not Detected (NotDetected)
[2020-11-16] MEDS ORDERED: Aspirin 325 MG TAB ONE (05:18)
[2020-11-16] MEDS ORDERED: Furosemide 40 MG/4 ML VIAL ONE ×2 (05:18→14:22)
[2020-11-16] MEDS ORDERED: Sodium Chloride 0.65% Nasal 44 ML BOT EA NARE PRN (08:31)
[2020-11-16] MEDS ORDERED: Senokot S 8.6-50 MG TAB PO PRN (08:31)
[2020-11-16] MEDS ORDERED: HumaLOG 300 UNITS/3 ML VIAL SC PRN (08:31)
[2020-11-16] MEDS ORDERED: Hydrocerin (Eucerin) Cream 120 gm Jar TOP PRN (08:31)
[2020-11-16] MEDS ORDERED: Artificial Tear Sol 15 ML BOT EA EYE PRN (08:31)
[2020-11-16] MEDS ORDERED: Calcium Carbonate 500 MG ChewTAB PO PRN (08:31)
[2020-11-16] MEDS ORDERED: Dextrose 50% Abboject 50 ML SYRINGE SLOW IVP PRN (08:31)
[2020-11-16] MEDS ORDERED: Ondansetron PF 4 MG/2 ML Vial IVP PRN (08:31)
[2020-11-16] MEDS ORDERED: Ondansetron ODT 4 MG TAB PO PRN (08:31)
[2020-11-16] MEDS ORDERED: Dextrose 5% in Water 1,000 ML IV PRN (08:31)
[2020-11-16] MEDS ORDERED: Loratadine 10 MG TAB PO PRN (08:31)
[2020-11-16] MEDS ORDERED: Loperamide HCl 2 MG CAP PO PRN (08:31)
[2020-11-16] MEDS ORDERED: GUAIFENESIN SF SOLN 200 MG/10 ML UDCUP PO PRN (08:31)
[2020-11-16] MEDS ORDERED: hydrALAZINE 20 MG/ML VIAL SLOW IVP PRN (08:31)
[2020-11-16] MEDS ORDERED: Bisacodyl 10 MG SUPP PR PRN (08:31)
[2020-11-16] MEDS ORDERED: Atorvastatin Calcium 10 MG TAB PO SCH (09:00)
[2020-11-16] MEDS ORDERED: Levothyroxine Sodium 100 MCG TAB PO SCH (09:00)
[2020-11-16] MEDS ORDERED: Folic Acid 1 MG TAB ONE (11:47)
[2020-11-16] MEDS ORDERED: Metoprolol Tartrate 50 MG TAB ONE (11:47)
[2020-11-16] MEDS ORDERED: Aspirin Chewable 81 MG TAB ONE (11:47)
[2020-11-16] MEDS ORDERED: Digoxin 0.125 MG TAB ONE (11:47)
[2020-11-16] MEDS ORDERED: Enoxaparin Sodium 40 MG/0.4 ML SYRINGE ONE (11:47)
[2020-11-16] MEDS: Digoxin 0.125 MG TAB PO SCH (11:59)
[2020-11-16] MEDS: Aspirin Chewable 81 MG TAB PO SCH (11:59)
[2020-11-16] MEDS: Enoxaparin Sodium 40 MG/0.4 ML SYRINGE SC SCH (12:00)
[2020-11-16] MEDS: Folic Acid 1 MG TAB PO SCH (12:00)
[2020-11-16] MEDS: DULoxetine 30 MG CAP PO SCH (12:00)
[2020-11-16] MEDS: Polyethylene Glycol 3350 17 GM Packet PO SCH (12:00)
[2020-11-16] MEDS: Metoprolol Tartrate 50 MG TAB PO SCH ×2 (12:00→21:02)
[2020-11-16 13:00] LABS: Troponin I 0.043 ng/mL (< 0.028)
[2020-11-16] MEDS: Furosemide 40 MG/4 ML VIAL SLOW IVP SCH (14:19)
[2020-11-16 16:30] VITALS: BMI 33.5
[2020-11-16] MEDS: Budesonide 0.5 MG/2 ML NEB NEB SCH (20:29)
[2020-11-16] MEDS: Atorvastatin Calcium 10 MG TAB PO SCH (21:01)
[2020-11-16] MEDS: Latanoprost 0.005% Ophth Soln 2.5 ml Bottle EA EYE SCH (23:16)
[2020-11-17 05:28] LABS: #Eosinphils 0.3 thou/uL (0.0-0.7); #Lymphocytes 0.8 thou/uL (1.20-3.40); #Monocytes 0.8 thou/uL (0.11-0.59); #Neutrophils 7.1 thou/uL (1.40-6.50); %Basophils 0.5 % (0.0-1.0); %Eosinophils 3.5 % (0.0-10.0); %Lymphocytes 8.8 % (21.0-51.0); %Monocytes 8.6 % (0.0-10.0); %Neutrophils 78.6 % (42.0-75.0); Hemoglobin 9.1 g/dL (12.0-16.0); Mean Corpuscular HGB CONC 30.6 g/dL (32.0-36.0); Mean Platelet Volume 8.8 fL (7.4-10.4); Platelet Count 119 thou/uL (130-400); RBC Distribution Width 14.9 % (11.5-14.5); Red Blood Cell (RBC) Count 2.95 mill/uL (4.20-5.40)
[2020-11-17 06:14] LABS: Phosphorus 3.1 mg/dL (2.3-4.7)
[2020-11-17 06:22] LABS: ALT (SGPT) 8 U/L (8-55); AST (SGOT) 17 U/L (5-34); Albumin 3.4 g/dL (3.4-4.8); Alkaline Phosphatase 71 U/L (40-110); BUN (Urea Nitrogen) 42 mg/dL (9.8-20.1); Bilirubin, Total 0.8 mg/dL (0.2-1.2); Calc. Creatinine Clearance 46 mL/min (70-130); Calcium 9.8 mg/dL (7.8-10.44); Globulin 3.7 g/dL (2.4-3.5); Glucose 115 mg/dL (83-110); Magnesium 2.1 mg/dL (1.6-2.6); Protein, Total 7.1 g/dL (5.8-8.1); Uric Acid 8.2 mg/dL (2.6-6.0)
[2020-11-17 06:31] LABS: Anion Gap 19 mmol/L (10-20); Carbon Dioxide 34 mmol/L (23-31); Chloride 94 mmol/L (98-107); Potassium 4.3 mmol/L (3.5-5.1); Sodium 143 mmol/L (136-145)
[2020-11-17] MEDS: Levothyroxine Sodium 112 MCG TAB PO SCH (06:41)
[2020-11-17] MEDS: Furosemide 40 MG/4 ML VIAL SLOW IVP SCH ×2 (06:41→14:49)
[2020-11-17] MEDS: Aspirin Chewable 81 MG TAB PO SCH (09:16)
[2020-11-17] MEDS: Folic Acid 1 MG TAB PO SCH (09:16)
[2020-11-17] MEDS: Polyethylene Glycol 3350 17 GM Packet PO SCH (09:16)
[2020-11-17] MEDS: DULoxetine 30 MG CAP PO SCH (09:16)
[2020-11-17] MEDS: Enoxaparin Sodium 40 MG/0.4 ML SYRINGE SC SCH (09:17)
[2020-11-17] MEDS: Digoxin 0.125 MG TAB PO SCH (09:19)
[2020-11-17] MEDS: Metoprolol Tartrate 50 MG TAB PO SCH ×2 (09:19→21:06)
[2020-11-17] MEDS: Budesonide 0.5 MG/2 ML NEB NEB SCH ×2 (09:55→19:52)
[2020-11-17] MEDS: Estradiol 0.01% Vaginal Cream 42.5 gm Tube VAG SCH (10:23)
[2020-11-17] MEDS: Atorvastatin Calcium 10 MG TAB PO SCH (21:06)
[2020-11-17] MEDS: DorzolamidE/Timolol 2%/0.5% Ophth Soln 10 ml Bottle EA EYE SCH (21:06)
[2020-11-17] MEDS ORDERED: Lorazepam 2 MG/ML VIAL SLOW IVP PRN (21:58)
[2020-11-17] MEDS: Latanoprost 0.005% Ophth Soln 2.5 ml Bottle EA EYE SCH (22:32)
[2020-11-18 04:30] LABS: Troponin I 0.064 ng/mL (< 0.028)
[2020-11-18] MEDS: Furosemide 40 MG/4 ML VIAL SLOW IVP SCH ×2 (05:54→14:33)
[2020-11-18] MEDS: Levothyroxine Sodium 112 MCG TAB PO SCH (05:54)
[2020-11-18] MEDS: Folic Acid 1 MG TAB PO SCH ×2 (08:44→14:14)
[2020-11-18] MEDS: Polyethylene Glycol 3350 17 GM Packet PO SCH ×2 (08:44→14:14)
[2020-11-18] MEDS: Enoxaparin Sodium 40 MG/0.4 ML SYRINGE SC SCH (08:44)
[2020-11-18] MEDS: DULoxetine 30 MG CAP PO SCH ×2 (08:44→14:13)
[2020-11-18] MEDS: Aspirin Chewable 81 MG TAB PO SCH ×2 (08:44→14:13)
[2020-11-18] MEDS: Digoxin 0.125 MG TAB PO SCH ×2 (08:46→14:13)
[2020-11-18] MEDS: Metoprolol Tartrate 50 MG TAB PO SCH ×3 (08:46→21:13)
[2020-11-18] MEDS: Budesonide 0.5 MG/2 ML NEB NEB SCH ×2 (08:47→20:20)
[2020-11-18] MEDS: DorzolamidE/Timolol 2%/0.5% Ophth Soln 10 ml Bottle EA EYE SCH ×3 (10:04→21:12)
[2020-11-18] MEDS: Latanoprost 0.005% Ophth Soln 2.5 ml Bottle EA EYE SCH (21:12)
[2020-11-18] MEDS: Atorvastatin Calcium 10 MG TAB PO SCH (21:12)
[2020-11-19] MEDS: Furosemide 40 MG/4 ML VIAL SLOW IVP SCH ×2 (05:16→14:38)
[2020-11-19] MEDS: Levothyroxine Sodium 112 MCG TAB PO SCH (05:43)
[2020-11-19] MEDS: Budesonide 0.5 MG/2 ML NEB NEB SCH ×2 (07:20→20:00)
[2020-11-19] MEDS: Digoxin 0.125 MG TAB PO SCH (09:03)
[2020-11-19] MEDS: DULoxetine 30 MG CAP PO SCH (09:03)
[2020-11-19] MEDS: Aspirin Chewable 81 MG TAB PO SCH (09:03)
[2020-11-19] MEDS: Folic Acid 1 MG TAB PO SCH (09:04)
[2020-11-19] MEDS: Metoprolol Tartrate 50 MG TAB PO SCH ×2 (09:04→20:55)
[2020-11-19] MEDS: Polyethylene Glycol 3350 17 GM Packet PO SCH (09:04)
[2020-11-19] MEDS: Enoxaparin Sodium 40 MG/0.4 ML SYRINGE SC SCH (09:09)
[2020-11-19] MEDS: Estradiol 0.01% Vaginal Cream 42.5 gm Tube VAG SCH (09:09)
[2020-11-19] MEDS: DorzolamidE/Timolol 2%/0.5% Ophth Soln 10 ml Bottle EA EYE SCH ×2 (09:09→20:54)
[2020-11-19 13:01] LABS: BUN (Urea Nitrogen) 60 mg/dL (9.8-20.1); Calc. Creatinine Clearance 45 mL/min (70-130); Calcium 10.3 mg/dL (7.8-10.44); Glucose 129 mg/dL (83-110)
[2020-11-19 13:10] LABS: Anion Gap 11 mmol/L (10-20); Chloride 95 mmol/L (98-107); Potassium 4.1 mmol/L (3.5-5.1); Sodium 146 mmol/L (136-145)
[2020-11-19 13:11] LABS: Actual Bicarbonate (HCO3a) 45.2 mEq/L (22-28); Base Excess (BEa) 15.2 mEq/L (-2.0 to +3.0); Calcium, Ionized (arterial) 1.21 mmol/L (1.12-1.30); Carboxyhemoglobin (COHb) 1.2 gm% (0.0-3.0); Hemoglobin (Hb) 10.7 g/dL (12.0-16.0); O2 Tension (PaO2), arterial 151.5 mmHg (> 60.0); pH, Arterial 7.29 (7.35-7.45)
[2020-11-19 13:12] LABS: Puncture Site LRA
[2020-11-19 13:17] LABS: Carbon Dioxide 44 mmol/L (23-31)
[2020-11-19] MEDS: Latanoprost 0.005% Ophth Soln 2.5 ml Bottle EA EYE SCH (20:53)
[2020-11-19] MEDS: Atorvastatin Calcium 10 MG TAB PO SCH (20:54)
[2020-11-20] MEDS: Furosemide 40 MG/4 ML VIAL SLOW IVP SCH ×2 (08:08→14:05)
[2020-11-20] MEDS: Levothyroxine Sodium 112 MCG TAB PO SCH (08:09)
[2020-11-20] MEDS: Budesonide 0.5 MG/2 ML NEB NEB SCH ×2 (11:34→18:07)
[2020-11-20] MEDS ORDERED: Bacteriostatic Water 30 ML VIAL FS PRN (12:45)
[2020-11-20] MEDS ORDERED: methylPREDNISolone Sod Succ 40 MG VIAL IVP SCH (12:45)
[2020-11-20] MEDS: Metoprolol Tartrate 50 MG TAB PO SCH ×2 (13:08→20:30)
[2020-11-20] MEDS: Polyethylene Glycol 3350 17 GM Packet PO SCH (13:08)
[2020-11-20] MEDS: DorzolamidE/Timolol 2%/0.5% Ophth Soln 10 ml Bottle EA EYE SCH ×2 (14:04→20:30)
[2020-11-20] MEDS: Digoxin 0.125 MG TAB PO SCH (14:04)
[2020-11-20] MEDS: Folic Acid 1 MG TAB PO SCH (14:05)
[2020-11-20] MEDS: cefTRIAXone\\ROCEPHIN 1 GM in Sodium Chloride 0.9% 100 ML IVPB SCH (14:05)
[2020-11-20] MEDS: Enoxaparin Sodium 40 MG/0.4 ML SYRINGE SC SCH (14:05)
[2020-11-20] MEDS: Aspirin Chewable 81 MG TAB PO SCH (14:05)
[2020-11-20] MEDS: DULoxetine 30 MG CAP PO SCH (14:05)
[2020-11-20] MEDS: Acetaminophen 325 MG TAB PO PRN ×2 (14:06→23:26)
[2020-11-20] MEDS: Azithromycin 500 MG in Sodium Chloride 0.9% 250 ML 250 ML IVPB SCH (15:13)
[2020-11-20] MEDS: Atorvastatin Calcium 10 MG TAB PO SCH (20:30)
[2020-11-20] MEDS: methylPREDNISolone Sod Succ 40 MG VIAL IVP SCH (20:31)
[2020-11-20] MEDS: Latanoprost 0.005% Ophth Soln 2.5 ml Bottle EA EYE SCH (20:31)
[2020-11-21] MEDS: Furosemide 40 MG/4 ML VIAL SLOW IVP SCH ×2 (06:07→15:23)
[2020-11-21] MEDS: Levothyroxine Sodium 112 MCG TAB PO SCH (06:07)
[2020-11-21] MEDS: DorzolamidE/Timolol 2%/0.5% Ophth Soln 10 ml Bottle EA EYE SCH ×2 (09:19→21:35)
[2020-11-21] MEDS: Digoxin 0.125 MG TAB PO SCH (09:20)
[2020-11-21] MEDS: Enoxaparin Sodium 40 MG/0.4 ML SYRINGE SC SCH (09:20)
[2020-11-21] MEDS: DULoxetine 30 MG CAP PO SCH (09:21)
[2020-11-21] MEDS: Folic Acid 1 MG TAB PO SCH (09:21)
[2020-11-21] MEDS: Aspirin Chewable 81 MG TAB PO SCH (09:21)
[2020-11-21] MEDS: Metoprolol Tartrate 50 MG TAB PO SCH ×2 (09:21→21:35)
[2020-11-21] MEDS: methylPREDNISolone Sod Succ 40 MG VIAL IVP SCH ×2 (09:22→21:36)
[2020-11-21] MEDS: Polyethylene Glycol 3350 17 GM Packet PO SCH (09:22)
[2020-11-21] MEDS: Budesonide 0.5 MG/2 ML NEB NEB SCH ×2 (09:35→17:57)
[2020-11-21] MEDS: cefTRIAXone\\ROCEPHIN 1 GM in Sodium Chloride 0.9% 100 ML IVPB SCH (13:26)
[2020-11-21] MEDS: Azithromycin 500 MG in Sodium Chloride 0.9% 250 ML 250 ML IVPB SCH (15:23)
[2020-11-21] MEDS: HumaLOG 300 UNITS/3 ML VIAL SC PRN (17:57)
[2020-11-21] MEDS: Atorvastatin Calcium 10 MG TAB PO SCH (21:35)
[2020-11-21] MEDS: Latanoprost 0.005% Ophth Soln 2.5 ml Bottle EA EYE SCH (21:35)
[2020-11-22] MEDS: Levothyroxine Sodium 112 MCG TAB PO SCH (05:45)
[2020-11-22] MEDS: Furosemide 40 MG/4 ML VIAL SLOW IVP SCH ×2 (05:45→14:42)
[2020-11-22] MEDS: Polyethylene Glycol 3350 17 GM Packet PO SCH ×2 (09:43→09:47)
[2020-11-22] MEDS: Folic Acid 1 MG TAB PO SCH (09:43)
[2020-11-22] MEDS: Aspirin Chewable 81 MG TAB PO SCH (09:43)
[2020-11-22] MEDS: Digoxin 0.125 MG TAB PO SCH (09:43)
[2020-11-22] MEDS: Metoprolol Tartrate 50 MG TAB PO SCH ×2 (09:43→22:10)
[2020-11-22] MEDS: DULoxetine 30 MG CAP PO SCH (09:43)
[2020-11-22] MEDS: Enoxaparin Sodium 40 MG/0.4 ML SYRINGE SC SCH (09:44)
[2020-11-22] MEDS: methylPREDNISolone Sod Succ 40 MG VIAL IVP SCH ×2 (09:44→22:08)
[2020-11-22] MEDS: DorzolamidE/Timolol 2%/0.5% Ophth Soln 10 ml Bottle EA EYE SCH ×2 (09:44→22:10)
[2020-11-22] MEDS: Budesonide 0.5 MG/2 ML NEB NEB SCH ×2 (10:45→18:51)
[2020-11-22] MEDS: cefTRIAXone\\ROCEPHIN 1 GM in Sodium Chloride 0.9% 100 ML IVPB SCH (13:50)
[2020-11-22] MEDS: Azithromycin 500 MG in Sodium Chloride 0.9% 250 ML 250 ML IVPB SCH (14:45)
[2020-11-22] MEDS: Estradiol 0.01% Vaginal Cream 42.5 gm Tube VAG SCH (14:46)
[2020-11-22] MEDS: HumaLOG 300 UNITS/3 ML VIAL SC PRN (18:17)
[2020-11-22] MEDS: Atorvastatin Calcium 10 MG TAB PO SCH (22:10)
[2020-11-22] MEDS: Latanoprost 0.005% Ophth Soln 2.5 ml Bottle EA EYE SCH (22:11)
[2020-11-22] MEDS: Acetaminophen 325 MG TAB PO PRN (23:14)
[2020-11-23] MEDS: HumaLOG 300 UNITS/3 ML VIAL SC PRN ×2 (06:27→11:44)
[2020-11-23] MEDS: Furosemide 40 MG/4 ML VIAL SLOW IVP SCH ×2 (06:29→13:11)
[2020-11-23] MEDS: Levothyroxine Sodium 112 MCG TAB PO SCH (06:30)
[2020-11-23] MEDS: Budesonide 0.5 MG/2 ML NEB NEB SCH (08:47)
[2020-11-23] MEDS: DorzolamidE/Timolol 2%/0.5% Ophth Soln 10 ml Bottle EA EYE SCH (09:38)
[2020-11-23] MEDS: DULoxetine 30 MG CAP PO SCH (09:39)
[2020-11-23] MEDS: Aspirin Chewable 81 MG TAB PO SCH (09:39)
[2020-11-23] MEDS: Metoprolol Tartrate 50 MG TAB PO SCH (09:39)
[2020-11-23] MEDS: Digoxin 0.125 MG TAB PO SCH (09:39)
[2020-11-23] MEDS: Folic Acid 1 MG TAB PO SCH (09:39)
[2020-11-23] MEDS: Polyethylene Glycol 3350 17 GM Packet PO SCH (09:40)
[2020-11-23] MEDS: Enoxaparin Sodium 40 MG/0.4 ML SYRINGE SC SCH (09:40)
[2020-11-23] MEDS: methylPREDNISolone Sod Succ 40 MG VIAL IVP SCH (09:40)
[2020-11-23] MEDS: cefTRIAXone\\ROCEPHIN 1 GM in Sodium Chloride 0.9% 100 ML IVPB SCH (13:11)
[2020-11-23] MEDS: Azithromycin 500 MG in Sodium Chloride 0.9% 250 ML 250 ML IVPB SCH (13:11)
[2020-11-23 17:06] VITALS: BP 143/69; TEMP 97.8
== END 2020-11-23 18:11 | DRG 280 ==
LOC: ERS 03:23 → ERHOLD 06:00 → 2NO 15:28
PROVIDERS: ADMIT Student in an Organized Health Care Education/Training Program; ATTEND Internal Medicine
PROC: 5A09557 Assistance with Respiratory Ventilation, Greater than 96 Consecutive Hours, Continuous Positive Airway Pressure (ICD-10-PCS; principal; 2020-11-19)
DX: I13.0 Hypertensive heart and chronic kidney disease with heart failure and stage 1 through stage 4 chronic kidney disease, or unspecified chronic kidney disease (principal); I50.33 Acute on chronic diastolic (congestive) heart failure; I21.A1 Myocardial infarction type 2; J96.21 Acute and chronic respiratory failure with hypoxia; J44.1 Chronic obstructive pulmonary disease with (acute) exacerbation; I48.20 Chronic atrial fibrillation, unspecified; Z66 Do not resuscitate; Z20.822 Contact with and (suspected) exposure to COVID-19; E03.9 Hypothyroidism, unspecified; M19.90 Unspecified osteoarthritis, unspecified site; E11.42 Type 2 diabetes mellitus with diabetic polyneuropathy; E11.22 Type 2 diabetes mellitus with diabetic chronic kidney disease; G89.4 Chronic pain syndrome; E66.9 Obesity, unspecified; I27.20 Pulmonary hypertension, unspecified; Z96.643 Presence of artificial hip joint, bilateral; Z96.652 Presence of left artificial knee joint; F32.9 Major depressive disorder, single episode, unspecified; I07.1 Rheumatic tricuspid insufficiency; I49.5 Sick sinus syndrome; K58.9 Irritable bowel syndrome, unspecified; G47.33 Obstructive sleep apnea (adult) (pediatric); N18.30 Chronic kidney disease, stage 3 unspecified; H40.9 Unspecified glaucoma; K21.9 Gastro-esophageal reflux disease without esophagitis; E78.2 Mixed hyperlipidemia; Z68.31 Body mass index [BMI] 31.0-31.9, adult; Z95.2 Presence of prosthetic heart valve; Z95.810 Presence of automatic (implantable) cardiac defibrillator; Z88.1 Allergy status to other antibiotic agents; Z88.5 Allergy status to narcotic agent; Z88.8 Allergy status to other drugs, medicaments and biological substances
CPT/HCPCS: 0240U; 36415; 36416; 36600; 71045; 80048; 80053; 82553; 82805; 83735; 83880; 84100; 84484; 84550; 85025; 93005; 93798; 94640; 94660; 96374; 97139; J0360; J0456; J0696; J1650; J1815; J1940; J2060; J2920; J3490; J7050; J7620; J7626; Q0162

== ENCOUNTER 2021-02-27 20:17 | Inpatient (IN) | payer MEDICARE ==
[2021-02-27] MEDS ORDERED: Propofol 1,000 MG/100 ML VIAL IV ONE (20:26)
[2021-02-27 20:53] LABS: Actual Bicarbonate (HCO3a) 20.9 mEq/L (22-28); Analyzer IN Cardio ER; Base Excess (BEa) -4.7 mEq/L (-2.0 to +3.0); CO2 Tension 41.3 mmHg (35.0-45.0); Calcium, Ionized (arterial) 1.09 mmol/L (1.12-1.30); Carboxyhemoglobin (COHb) 0.5 gm% (0.0-3.0); Hemoglobin (Hb) 8.5 g/dL (12.0-16.0); O2 Tension (PaO2), arterial 144.7 mmHg (> 60.0); Potassium - ABG Lab 5.26 mmol/L (3.70-5.30); pH, Arterial 7.32 (7.35-7.45)
[2021-02-27] MEDS ORDERED: Norepinephrine 8 MG/0.9% NS 250 ML ONE (21:07)
[2021-02-27] MEDS ORDERED: Cefepime 2 GM VIAL ONE (21:16)
[2021-02-27] MEDS ORDERED: Vancomycin 1 GM/200 ML BAG ONE (21:16)
[2021-02-27 21:22] LABS: Hemoglobin 8.1 g/dL (12.0-16.0); Mean Corpuscular HGB CONC 31.3 g/dL (32.0-36.0); Mean Corpuscular Hemoglobin 31.7 pg (27.0-31.0); Mean Platelet Volume 7.6 fL (7.4-10.4); Platelet Count 267 thou/uL (130-400); RBC Distribution Width 17.2 % (11.5-14.5); Red Blood Cell (RBC) Count 2.55 mill/uL (4.20-5.40); White Blood Cell (WBC) Count 16.2 thou/uL (4.8-10.8)
[2021-02-27 21:29] LABS: ALV-art Gradient 516.675 mmHg (0-20); Puncture Site RRA
[2021-02-27 21:34] LABS: INR-International Normal Ratio 1.3; PTT 31.5 sec (22.9-36.1); Prothrombin Time 16.2 sec (12.0-14.7)
[2021-02-27 21:38] LABS: ALT (SGPT) 36 U/L (8-55); AST (SGOT) 78 U/L (5-34); Albumin 2.9 g/dL (3.4-4.8); Alkaline Phosphatase 65 U/L (40-110); Anion Gap 25 mmol/L (10-20); BUN (Urea Nitrogen) 59 mg/dL (9.8-20.1); Bilirubin, Total 0.4 mg/dL (0.2-1.2); CK (CPK) 71 U/L (29-168); Calc. Creatinine Clearance 0 mL/min (70-130); Calcium 8.7 mg/dL (7.8-10.44); Carbon Dioxide 22 mmol/L (23-31); Chloride 96 mmol/L (98-107); Globulin 3.2 g/dL (2.4-3.5); Glucose 181 mg/dL (83-110); Lipase 90 U/L (8-78); Magnesium 2.6 mg/dL (1.6-2.6); Potassium 5.6 mmol/L (3.5-5.1); Protein, Total 6.1 g/dL (5.8-8.1); Sodium 137 mmol/L (136-145)
[2021-02-27 21:51] LABS: Anisocytosis SLIGHT = 6-15 cells (100X) (0-5/hpf); Band 13 % (5-11); Lymphocytes 4 % (21-51); MDiff Complete? YES; Monocytes 2 % (0-10); Myelocyte 11 % (0-0); Neutrophil 70 % (42-75); Nucleated RBC 3 % (0); Platelet Morphology Comment Appears Adequate; Polychromasia SLIGHT = 2-3 cells (100X) (0-2/hpf)
[2021-02-27 21:55] LABS: CKMB 3.5 ng/mL (0-6.6)
[2021-02-27 22:41] LABS: SARS-CoV-2 NAA Rapid Test Not Detected (NotDetected)
[2021-02-27] MEDS ORDERED: Acetaminophen 325 MG TAB PO PRN (23:06)
[2021-02-27] MEDS ORDERED: Ondansetron PF 4 MG/2 ML Vial IVP PRN (23:06)
[2021-02-27] MEDS ORDERED: Dextrose 5% in Water 1,000 ML IV PRN (23:11)
[2021-02-27] MEDS ORDERED: Dextrose 50% Abboject 50 ML SYRINGE SLOW IVP PRN (23:11)
[2021-02-27] MEDS ORDERED: HumaLOG 300 UNITS/3 ML VIAL SC PRN ×2 (23:11)
[2021-02-28] MEDS ORDERED: Norepinephrine 8 MG/0.9% NS 250 ML IVPB PRN (00:05)
[2021-02-28] MEDS ORDERED: Propofol BOLUS 1,000 MG/100 ML VIAL IV PRN (00:15)
[2021-02-28] MEDS ORDERED: Lorazepam 2 MG/ML VIAL SLOW IVP PRN (00:15)
[2021-02-28] MEDS ORDERED: Ventilator Sedation Protocol 1 EACH FS SCH (00:15)
[2021-02-28] MEDS ORDERED: Morphine 4 MG/ML VIAL SLOW IVP PRN (00:15)
[2021-02-28] MEDS ORDERED: Propofol 1,000 MG/100 ML VIAL IV PRN (00:15)
[2021-02-28] MEDS ORDERED: Fentanyl BOLUS 250 ML IVPB PRN (00:15)
[2021-02-28] MEDS ORDERED: DISCONTINUE PREVIOUS NARCOTIC PAIN MEDICATIONS AND BENZODIAZEPINES FS SCH (00:15)
[2021-02-28] MEDS ORDERED: Morphine 2 MG/ML VIAL SLOW IVP PRN (00:15)
[2021-02-28] MEDS ORDERED: Fentanyl CADD 100 ML IV SCH (00:15)
[2021-02-28 00:27] VITALS: BMI 29.7
[2021-02-28] MEDS: Cefepime 1 GM in Sodium Chloride 0.9% 100 ML IVPB SCH ×2 (00:54→12:13)
[2021-02-28 01:03] LABS: Anion Gap 21 mmol/L (10-20); BUN (Urea Nitrogen) 58 mg/dL (9.8-20.1); Calc. Creatinine Clearance 31 mL/min (70-130); Calcium 9.2 mg/dL (7.8-10.44); Carbon Dioxide 24 mmol/L (23-31); Chloride 97 mmol/L (98-107); Glucose 179 mg/dL (83-110); Potassium 5.6 mmol/L (3.5-5.1); Sodium 136 mmol/L (136-145)
[2021-02-28 01:08] LABS: Troponin I 0.249 ng/mL (< 0.028)
[2021-02-28 01:09] LABS: Bilirubin Negative (Negative); Blood, Urine 3+ (Negative); Clarity Extra Turbid (Clear); Glucose, Urine (Dipstick) 70 mg/dL (Negative); Ketone, Urine Negative (Negative); Leukocyte Negative Leu/uL (Negative); Mucous/LPF 1+ LPF (<2+); Nitrite Negative (Negative); Protein, Urine (Dipstick) 300 mg/dL (Neg-Trace); RBC/HPF Greater than 50 HPF (0-3); Specific Gravity, Urine 1.023 (1.002-1.036); Urobilinogen Normal mg/dL (Less than 2); WBC/HPF Greater than 50 HPF (0-3)
[2021-02-28 01:11] LABS: Lactic Acid 5.7 mmol/L (0.5-2.2)
[2021-02-28 01:44] LABS: Bacteria/HPF 2+ HPF (None Seen)
[2021-02-28 01:48] LABS: Urine Culture Reflex No No
[2021-02-28] MEDS: Sodium Chloride 0.9% 1,000 ML IV SCH ×2 (01:55→22:41)
[2021-02-28] MEDS ORDERED: VANCOMYCIN 1.75 GM/350 ML BAG 1.75 GM in Premix Bag 1 BAG IVPB SCH (02:00)
[2021-02-28] MEDS ORDERED: Calcium Gluc 4.6 MEQ/10 ML (100 MG/ML) SLOW IVP SCH (03:15)
[2021-02-28 03:25] LABS: Hemoglobin 8.8 g/dL (12.0-16.0); Mean Corpuscular Hemoglobin 30.6 pg (27.0-31.0); Mean Corpuscular Volume 98.6 fL (78.0-98.0); Mean Platelet Volume 7.7 fL (7.4-10.4); Platelet Count 232 thou/uL (130-400); RBC Distribution Width 17.3 % (11.5-14.5); Red Blood Cell (RBC) Count 2.87 mill/uL (4.20-5.40)
[2021-02-28 03:26] LABS: #Eosinphils 0.7 thou/uL (0.0-0.7); #Lymphocytes 2.1 thou/uL (1.20-3.40); #Monocytes 1.4 thou/uL (0.11-0.59); #Neutrophils 13.5 thou/uL (1.40-6.50); %Basophils 0.2 % (0.0-1.0); %Eosinophils 3.8 % (0.0-10.0); %Lymphocytes 11.6 % (21.0-51.0); %Monocytes 7.9 % (0.0-10.0); %Neutrophils 76.5 % (42.0-75.0)
[2021-02-28 03:37] LABS: Troponin I 0.276 ng/mL (< 0.028)
[2021-02-28 03:45] LABS: Iron 54 ug/dL (50-170); Iron Binding Capacity, Total 279 mcg/dL (265-497)
[2021-02-28 03:46] LABS: ALT (SGPT) 33 U/L (8-55); AST (SGOT) 70 U/L (5-34); Albumin 2.9 g/dL (3.4-4.8); Alkaline Phosphatase 66 U/L (40-110); Anion Gap 20 mmol/L (10-20); BUN (Urea Nitrogen) 58 mg/dL (9.8-20.1); Bilirubin, Total 0.5 mg/dL (0.2-1.2); Calc. Creatinine Clearance 31 mL/min (70-130); Calcium 9.2 mg/dL (7.8-10.44); Carbon Dioxide 23 mmol/L (23-31); Chloride 98 mmol/L (98-107); Globulin 3.3 g/dL (2.4-3.5); Glucose 182 mg/dL (83-110); Iron 52 ug/dL (50-170); Iron Binding Capacity, Total 278 mcg/dL (265-497); Magnesium 2.5 mg/dL (1.6-2.6); Potassium 5.4 mmol/L (3.5-5.1); Protein, Total 6.2 g/dL (5.8-8.1); Sodium 136 mmol/L (136-145)
[2021-02-28 04:03] LABS: Free T4 (Free Thyroxine) 0.98 ng/dL (0.70-1.48)
[2021-02-28 08:01] LABS: Actual Bicarbonate (HCO3a) 25.8 mEq/L (22-28); CO2 Tension 31.4 mmHg (35.0-45.0); Calcium, Ionized (arterial) 1.11 mmol/L (1.12-1.30); Carboxyhemoglobin (COHb) 0.3 gm% (0.0-3.0); Hemoglobin (Hb) 7.3 g/dL (12.0-16.0); O2 Tension (PaO2), arterial 293.7 mmHg (> 60.0); Potassium - ABG Lab 4.67 mmol/L (3.70-5.30); pH, Arterial 7.53 (7.35-7.45)
[2021-02-28 08:12] LABS: Puncture Site LRA
[2021-02-28] MEDS ORDERED: Lactated Ringer's 1,000 ML IV SCH (08:45)
[2021-02-28] MEDS ORDERED: Digoxin 0.125 MG TAB PO SCH (09:00)
[2021-02-28] MEDS: Levothyroxine Sodium 112 MCG TAB PO SCH (09:53)
[2021-02-28 13:07] LABS: Lactic Acid 2.1 mmol/L (0.5-2.2)
[2021-02-28] MEDS ORDERED: Sodium Chloride 0.9% 500 ML IV SCH (22:45)
[2021-02-28] MEDS ORDERED: Meropenem 1 GM in Sodium Chloride 0.9% 100 ML IVPB SCH (23:45)
[2021-03-01 01:09] LABS: Vancomycin, Random 22.5 ug/mL (See Comment)
[2021-03-01] MEDS ORDERED: Vancomycin 1 GM in Premix Bag 1 BAG IVPB SCH (02:00)
[2021-03-01 03:37] LABS: #Eosinphils 0.4 thou/uL (0.0-0.7); #Lymphocytes 1.5 thou/uL (1.20-3.40); #Monocytes 1.1 thou/uL (0.11-0.59); #Neutrophils 7.8 thou/uL (1.40-6.50); %Basophils 0.3 % (0.0-1.0); %Eosinophils 3.7 % (0.0-10.0); %Monocytes 9.9 % (0.0-10.0); %Neutrophils 72.1 % (42.0-75.0); Hemoglobin 7.3 g/dL (12.0-16.0); Mean Corpuscular HGB CONC 31.9 g/dL (32.0-36.0); Mean Platelet Volume 7.7 fL (7.4-10.4); Platelet Count 195 thou/uL (130-400); Red Blood Cell (RBC) Count 2.29 mill/uL (4.20-5.40); White Blood Cell (WBC) Count 10.7 thou/uL (4.8-10.8)
[2021-03-01 04:03] LABS: ALT (SGPT) 21 U/L (8-55); AST (SGOT) 30 U/L (5-34); Albumin 2.5 g/dL (3.4-4.8); Alkaline Phosphatase 51 U/L (40-110); Anion Gap 14 mmol/L (10-20); BUN (Urea Nitrogen) 54 mg/dL (9.8-20.1); Bilirubin, Total 0.4 mg/dL (0.2-1.2); Calc. Creatinine Clearance 31 mL/min (70-130); Calcium 8.5 mg/dL (7.8-10.44); Carbon Dioxide 27 mmol/L (23-31); Chloride 103 mmol/L (98-107); Globulin 2.9 g/dL (2.4-3.5); Glucose 97 mg/dL (83-110); Magnesium 2.3 mg/dL (1.6-2.6); Potassium 3.6 mmol/L (3.5-5.1); Protein, Total 5.4 g/dL (5.8-8.1); Sodium 140 mmol/L (136-145)
[2021-03-01] MEDS: Levothyroxine Sodium 112 MCG TAB PO SCH (06:44)
[2021-03-01 07:48] LABS: Actual Bicarbonate (HCO3a) 27.9 mEq/L (22-28); Base Excess (BEa) 4.1 mEq/L (-2.0 to +3.0); CO2 Tension 38.3 mmHg (35.0-45.0); Calcium, Ionized (arterial) 1.17 mmol/L (1.12-1.30); Carboxyhemoglobin (COHb) 1.3 gm% (0.0-3.0); Hemoglobin (Hb) 7.5 g/dL (12.0-16.0); O2 Tension (PaO2), arterial 86.9 mmHg (> 60.0); Potassium - ABG Lab 3.46 mmol/L (3.70-5.30); pH, Arterial 7.48 (7.35-7.45)
[2021-03-01 07:52] LABS: ALV-art Gradient 150.425 mmHg (0-20); Puncture Site LRA
[2021-03-01] MEDS ORDERED: Meropenem 500 MG in Sodium Chloride 0.9% 100 ML IVPB SCH (08:00)
[2021-03-01] MEDS ORDERED: DC Sedation Protocol FS ONE (08:18)
[2021-03-01] MEDS ORDERED: Digoxin 0.125 MG TAB PO SCH (09:00)
[2021-03-01 11:30] VITALS: BP 135/69
[2021-03-01 12:59] LABS: Vancomycin, Random 21.9 ug/mL (See Comment)
[2021-03-01] MEDS ORDERED: Furosemide 40 MG/4 ML VIAL ONE (13:56)
[2021-03-01 13:58] LABS: Vancomycin, Random 18.2 ug/mL (See Comment)
[2021-03-01] MEDS ORDERED: Furosemide 40 MG/4 ML VIAL SLOW IVP SCH (14:15)
[2021-03-01 16:05] VITALS: TEMP 98.6
[2021-03-01] MEDS: Sodium Chloride 0.9% 1,000 ML IV SCH (17:19)
[2021-03-01] MEDS ORDERED: Ketorolac Tromethamine 30 MG/ML VIAL IVP PRN (17:46)
[2021-03-01] MEDS ORDERED: Acetaminophen 650 MG Suppository PR PRN (17:49)
[2021-03-01] MEDS ORDERED: Vancomycin HCl 500 MG in Sodium Chloride 0.9% 100 ML IVPB SCH (18:00)
== END 2021-03-01 18:27 | disposition hospice, inpatient (51) | DRG 871 ==
LOC: ERS 20:17 → CCU 22:42
PROVIDERS: ADMIT Internal Medicine; ATTEND Hospitalist
PROC: 02HV33Z Insertion of Infusion Device into Superior Vena Cava, Percutaneous Approach (ICD-10-PCS; principal; 2021-02-27)
PROC: 5A1945Z Respiratory Ventilation, 24-96 Consecutive Hours (ICD-10-PCS; 2021-02-27)
PROC: 0BH18EZ Insertion of Endotracheal Airway into Trachea, Via Natural or Artificial Opening Endoscopic (ICD-10-PCS; 2021-02-27)
PROC: 3E033XZ Introduction of Vasopressor into Peripheral Vein, Percutaneous Approach (ICD-10-PCS; 2021-02-28)
PROC: 30233N1 Transfusion of Nonautologous Red Blood Cells into Peripheral Vein, Percutaneous Approach (ICD-10-PCS; 2021-03-01)
DX: A41.9 Sepsis, unspecified organism (principal); I46.9 Cardiac arrest, cause unspecified; R65.21 Severe sepsis with septic shock; I49.01 Ventricular fibrillation; G93.41 Metabolic encephalopathy; J96.01 Acute respiratory failure with hypoxia; R57.0 Cardiogenic shock; N17.0 Acute kidney failure with tubular necrosis; J96.21 Acute and chronic respiratory failure with hypoxia; I21.A1 Myocardial infarction type 2; I50.32 Chronic diastolic (congestive) heart failure; N17.9 Acute kidney failure, unspecified; E87.2 Acidosis; E87.3 Alkalosis; I48.20 Chronic atrial fibrillation, unspecified; N39.0 Urinary tract infection, site not specified; I10 Essential (primary) hypertension; E78.5 Hyperlipidemia, unspecified; J44.9 Chronic obstructive pulmonary disease, unspecified; I48.91 Unspecified atrial fibrillation; E03.9 Hypothyroidism, unspecified; M19.90 Unspecified osteoarthritis, unspecified site; I50.9 Heart failure, unspecified; E11.9 Type 2 diabetes mellitus without complications; G89.4 Chronic pain syndrome; E66.9 Obesity, unspecified; Z96.643 Presence of artificial hip joint, bilateral; F32.A Depression, unspecified; N18.30 Chronic kidney disease, stage 3 unspecified; E87.5 Hyperkalemia; I49.5 Sick sinus syndrome; E11.40 Type 2 diabetes mellitus with diabetic neuropathy, unspecified; N18.9 Chronic kidney disease, unspecified; R77.8 Other specified abnormalities of plasma proteins; D64.9 Anemia, unspecified; J42 Unspecified chronic bronchitis; Z66 Do not resuscitate; I27.20 Pulmonary hypertension, unspecified; G47.33 Obstructive sleep apnea (adult) (pediatric); K21.9 Gastro-esophageal reflux disease without esophagitis; Z20.822 Contact with and (suspected) exposure to COVID-19; E11.42 Type 2 diabetes mellitus with diabetic polyneuropathy; Z95.0 Presence of cardiac pacemaker; Z88.1 Allergy status to other antibiotic agents; Z88.8 Allergy status to other drugs, medicaments and biological substances; Z79.82 Long term (current) use of aspirin; Z79.899 Other long term (current) drug therapy; Z87.891 Personal history of nicotine dependence; Z95.2 Presence of prosthetic heart valve
CPT/HCPCS: 36415; 36416; 36430; 36556; 36600; 51702; 70450; 71045; 80048; 80053; 80202; 81001; 82274; 82550; 82553; 82728; 82805; 83540; 83550; 83605; 83690; 83735; 83880; 84439; 84443; 84481; 84484; 85025; 85610; 85730; 86850; 86900; 86901; 87045; 87046; 87324; 87427; 87449; 92950; 93005; 93010; 93306; 94002; 94003; 96365; 96366; 96368; J0610; J0692; J1815; J1940; J2185; J2405; J2704; J3010; J3370; J3490; J7030; J7050; J7120; P9016; U0002

== ENCOUNTER 2021-03-01 19:40 | Inpatient (IN) | payer MEDICARE ==
[2021-03-01] MEDS ORDERED: Furosemide 40 MG/4 ML VIAL SLOW IVP PRN (19:55)
[2021-03-01] MEDS ORDERED: Morphine 4 MG/ML VIAL SLOW IVP PRN (19:57)
[2021-03-01] MEDS ORDERED: Acetaminophen 650 MG Suppository PR PRN (19:59)
[2021-03-01] MEDS ORDERED: Scopolamine 1.5 mg/72 hour Patch TOP SCH (20:00)
[2021-03-01] MEDS ORDERED: Ondansetron PF 4 MG/2 ML Vial IVP PRN (20:00)
[2021-03-01] MEDS ORDERED: Lorazepam 2 MG/ML VIAL SLOW IVP PRN (20:00)
[2021-03-01] MEDS: Morphine 4 MG/ML VIAL SLOW IVP SCH (20:47)
[2021-03-02] MEDS: Morphine 4 MG/ML VIAL SLOW IVP SCH (03:25)
[2021-03-02 08:19] VITALS: TEMP 98.4
[2021-03-02 08:33] VITALS: BP 175/84
[2021-03-02] MEDS ORDERED: Furosemide 40 MG/4 ML VIAL SLOW IVP SCH (09:00)
[2021-03-04] MEDS ORDERED: FLU VACC QS2021-22(65YR UP)/PF 240 MCG/0.7 ML SYRINGE IM ONE (09:00)
== END 2021-03-02 10:36 | disposition hospice, inpatient (51) | DRG 951 ==
LOC: CCU 19:40
PROVIDERS: ADMIT Hospitalist; ATTEND Hospitalist
DX: Z51.5 Encounter for palliative care (principal)
CPT/HCPCS: J1940; J2270

== ENCOUNTER 2021-03-02 11:13 | Inpatient (IN) | payer OTHER ==
[2021-03-02 11:26] VITALS: BMI 29.7
[2021-03-02 11:27] VITALS: BP 164/93; TEMP 98.4
[2021-03-02] MEDS ORDERED: Furosemide 40 MG/4 ML VIAL SLOW IVP PRN (12:03)
[2021-03-02] MEDS ORDERED: Acetaminophen 650 MG Suppository PR PRN (12:04)
[2021-03-02] MEDS ORDERED: Lorazepam 2 MG/ML VIAL SLOW IVP PRN (12:04)
[2021-03-02] MEDS ORDERED: Ondansetron PF 4 MG/2 ML Vial IVP PRN (12:05)
[2021-03-02] MEDS ORDERED: Morphine 4 MG/ML VIAL SLOW IVP PRN (12:07)
[2021-03-02] MEDS ORDERED: Scopolamine 1.5 mg/72 hour Patch TOP SCH (12:30)
[2021-03-02] MEDS ORDERED: Morphine 4 MG/ML VIAL SLOW IVP SCH (14:00)
[2021-03-02] MEDS ORDERED: Ondansetron ODT 4 MG TAB PO PRN (15:08)
[2021-03-02] MEDS ORDERED: Famotidine 20 MG TAB PO SCH (21:00)
[2021-03-03] MEDS ORDERED: Enoxaparin Sodium 40 MG/0.4 ML SYRINGE SC SCH (09:00)
[2021-03-03] MEDS ORDERED: Furosemide 40 MG/4 ML VIAL SLOW IVP SCH (09:00)
== END 2021-03-02 15:22 | disposition short-term general hospital (02) | DRG 951 ==
LOC: CCU 11:13
PROVIDERS: ADMIT Family Medicine; ATTEND Family Medicine
DX: Z51.5 Encounter for palliative care (principal); I46.9 Cardiac arrest, cause unspecified; J96.21 Acute and chronic respiratory failure with hypoxia; I21.A1 Myocardial infarction type 2; A41.9 Sepsis, unspecified organism; I50.32 Chronic diastolic (congestive) heart failure; I48.20 Chronic atrial fibrillation, unspecified; N17.9 Acute kidney failure, unspecified; N39.0 Urinary tract infection, site not specified; I13.0 Hypertensive heart and chronic kidney disease with heart failure and stage 1 through stage 4 chronic kidney disease, or unspecified chronic kidney disease; E87.5 Hyperkalemia; J44.9 Chronic obstructive pulmonary disease, unspecified; D64.9 Anemia, unspecified; I27.20 Pulmonary hypertension, unspecified; G47.33 Obstructive sleep apnea (adult) (pediatric); K21.9 Gastro-esophageal reflux disease without esophagitis; F41.9 Anxiety disorder, unspecified; F32.A Depression, unspecified; E03.9 Hypothyroidism, unspecified; E11.42 Type 2 diabetes mellitus with diabetic polyneuropathy; N18.30 Chronic kidney disease, stage 3 unspecified; E11.22 Type 2 diabetes mellitus with diabetic chronic kidney disease; Z88.2 Allergy status to sulfonamides; Z88.8 Allergy status to other drugs, medicaments and biological substances; Z88.1 Allergy status to other antibiotic agents; Z79.899 Other long term (current) drug therapy; Z79.01 Long term (current) use of anticoagulants
CPT/HCPCS: J1940; J2270

== ENCOUNTER 2021-03-02 15:28 | Inpatient (IN) | payer MEDICARE ==
[2021-03-02] MEDS ORDERED: Guaifenesin DM 100-10/5 ML UDCUP PO PRN (16:00)
[2021-03-02] MEDS ORDERED: Senokot S 8.6-50 MG TAB PO PRN (16:00)
[2021-03-02] MEDS: hydrALAZINE 20 MG/ML VIAL SLOW IVP PRN (17:05)
[2021-03-02] MEDS ORDERED: Furosemide 40 MG/4 ML VIAL SLOW IVP SCH (17:15)
[2021-03-02 17:42] LABS: Bacteria/HPF 3+ HPF (None Seen); Bilirubin Negative (Negative); Blood, Urine 1+ (Negative); Clarity Clear (Clear); Glucose, Urine (Dipstick) Normal (Negative); Ketone, Urine Negative (Negative); Leukocyte 25 Leu/uL (Negative); Nitrite Negative (Negative); Protein, Urine (Dipstick) 100 mg/dL (Neg-Trace); RBC/HPF 0-3 HPF (0-3); Specific Gravity, Urine 1.013 (1.002-1.036); Squamous Epithelial None Seen HPF (0-3); Urobilinogen Normal mg/dL (Less than 2); pH, Urine 5.5 (5.0-9.0)
[2021-03-02 17:43] LABS: Urine Culture Reflex Yes Yes
[2021-03-02] MEDS: Atorvastatin Calcium 10 MG TAB PO SCH (20:17)
[2021-03-02] MEDS: Metoprolol Tartrate 50 MG TAB PO SCH (20:17)
[2021-03-03 03:36] LABS: #Eosinphils 0.2 thou/uL (0.0-0.7); #Lymphocytes 1.2 thou/uL (1.20-3.40); #Monocytes 0.7 thou/uL (0.11-0.59); #Neutrophils 8.4 thou/uL (1.40-6.50); %Basophils 0.3 % (0.0-1.0); %Eosinophils 1.9 % (0.0-10.0); %Lymphocytes 11.5 % (21.0-51.0); %Monocytes 6.5 % (0.0-10.0); %Neutrophils 79.7 % (42.0-75.0); Hemoglobin 10.7 g/dL (12.0-16.0); Mean Corpuscular HGB CONC 32.5 g/dL (32.0-36.0); Mean Corpuscular Hemoglobin 31.7 pg (27.0-31.0); Mean Corpuscular Volume 97.7 fL (78.0-98.0); Mean Platelet Volume 7.8 fL (7.4-10.4); Platelet Count 173 thou/uL (130-400); Red Blood Cell (RBC) Count 3.39 mill/uL (4.20-5.40); White Blood Cell (WBC) Count 10.5 thou/uL (4.8-10.8)
[2021-03-03 03:53] LABS: Anion Gap 14 mmol/L (10-20); BUN (Urea Nitrogen) 48 mg/dL (9.8-20.1); Calc. Creatinine Clearance 34 mL/min (70-130); Calcium 9.6 mg/dL (7.8-10.44); Carbon Dioxide 28 mmol/L (23-31); Chloride 102 mmol/L (98-107); Glucose 91 mg/dL (83-110); Potassium 3.9 mmol/L (3.5-5.1); Sodium 140 mmol/L (136-145)
[2021-03-03] MEDS: Metoprolol Tartrate 50 MG TAB PO SCH ×2 (09:26→20:58)
[2021-03-03] MEDS: Famotidine 20 MG TAB PO SCH (09:26)
[2021-03-03] MEDS: Enoxaparin Sodium 30 MG/0.3 ML SYRINGE SC SCH (09:27)
[2021-03-03] MEDS: Amlodipine 5 MG TAB PO SCH (09:27)
[2021-03-03] MEDS: DULoxetine 30 MG CAP PO SCH (09:27)
[2021-03-03] MEDS ORDERED: Furosemide 40 MG/4 ML VIAL SLOW IVP SCH (10:45)
[2021-03-03] MEDS: methylPREDNISolone Sod Succ 40 MG VIAL IVP SCH ×2 (11:47→17:22)
[2021-03-03] MEDS ORDERED: Metoprolol Tartrate 5 MG/5 ML VIAL IVP SCH (20:30)
[2021-03-03] MEDS: Atorvastatin Calcium 10 MG TAB PO SCH (20:58)
[2021-03-04 00:29] LABS: Anion Gap 22 mmol/L (10-20); BUN (Urea Nitrogen) 53 mg/dL (9.8-20.1); Calc. Creatinine Clearance 32 mL/min (70-130); Calcium 10.2 mg/dL (7.8-10.44); Carbon Dioxide 22 mmol/L (23-31); Chloride 101 mmol/L (98-107); Glucose 126 mg/dL (83-110); Magnesium 2.3 mg/dL (1.6-2.6); Potassium 4.6 mmol/L (3.5-5.1); Sodium 140 mmol/L (136-145)
[2021-03-04] MEDS: methylPREDNISolone Sod Succ 40 MG VIAL IVP SCH ×4 (01:30→18:37)
[2021-03-04 04:06] LABS: #Lymphocytes 0.8 thou/uL (1.20-3.40); #Monocytes 0.2 thou/uL (0.11-0.59); #Neutrophils 8.1 thou/uL (1.40-6.50); %Basophils 0.1 % (0.0-1.0); %Eosinophils 0.4 % (0.0-10.0); %Lymphocytes 8.7 % (21.0-51.0); %Monocytes 2.6 % (0.0-10.0); %Neutrophils 88.3 % (42.0-75.0); Hemoglobin 10.7 g/dL (12.0-16.0); Mean Corpuscular HGB CONC 32.1 g/dL (32.0-36.0); Mean Corpuscular Hemoglobin 30.9 pg (27.0-31.0); Mean Corpuscular Volume 96.3 fL (78.0-98.0); Mean Platelet Volume 7.7 fL (7.4-10.4); Platelet Count 189 thou/uL (130-400); RBC Distribution Width 17.5 % (11.5-14.5); Red Blood Cell (RBC) Count 3.47 mill/uL (4.20-5.40); White Blood Cell (WBC) Count 9.2 thou/uL (4.8-10.8)
[2021-03-04 04:26] LABS: Anion Gap 19 mmol/L (10-20); BUN (Urea Nitrogen) 58 mg/dL (9.8-20.1); Calc. Creatinine Clearance 29 mL/min (70-130); Calcium 10.2 mg/dL (7.8-10.44); Carbon Dioxide 27 mmol/L (23-31); Chloride 102 mmol/L (98-107); Glucose 114 mg/dL (83-110); Magnesium 2.3 mg/dL (1.6-2.6); Potassium 4.7 mmol/L (3.5-5.1); Sodium 143 mmol/L (136-145)
[2021-03-04 08:22] VITALS: BMI 30.7
[2021-03-04] MEDS: Amlodipine 5 MG TAB PO SCH (10:15)
[2021-03-04] MEDS: Famotidine 20 MG TAB PO SCH (10:16)
[2021-03-04] MEDS: DULoxetine 30 MG CAP PO SCH (10:16)
[2021-03-04] MEDS: Metoprolol Tartrate 50 MG TAB PO SCH ×2 (10:16→22:23)
[2021-03-04] MEDS: Enoxaparin Sodium 30 MG/0.3 ML SYRINGE SC SCH (10:17)
[2021-03-04] MEDS: Morphine 4 MG/ML VIAL SLOW IVP SCH ×11 (12:58→23:00)
[2021-03-04] MEDS: Atorvastatin Calcium 10 MG TAB PO SCH (22:23)
[2021-03-05] MEDS: methylPREDNISolone Sod Succ 40 MG VIAL IVP SCH ×4 (00:59→16:32)
[2021-03-05] MEDS: Morphine 4 MG/ML VIAL SLOW IVP SCH ×14 (01:00→18:40)
[2021-03-05 03:14] VITALS: BP 160/83
[2021-03-05 04:25] LABS: Magnesium 2.4 mg/dL (1.6-2.6)
[2021-03-05] MEDS: DULoxetine 30 MG CAP PO SCH (08:17)
[2021-03-05] MEDS: Amlodipine 5 MG TAB PO SCH (08:17)
[2021-03-05] MEDS: Metoprolol Tartrate 50 MG TAB PO SCH (08:18)
[2021-03-05] MEDS: Famotidine 20 MG TAB PO SCH (08:18)
[2021-03-05] MEDS: Enoxaparin Sodium 30 MG/0.3 ML SYRINGE SC SCH (08:29)
[2021-03-05] MEDS: hydrALAZINE 20 MG/ML VIAL SLOW IVP PRN (08:35)
[2021-03-05] MEDS ORDERED: Metoprolol Tartrate 5 MG/5 ML VIAL IVP SCH ×2 (11:27→21:00)
[2021-03-05 18:44] VITALS: TEMP 100.3
== END 2021-03-05 19:56 | disposition hospice, inpatient (51) | DRG 291 ==
LOC: CCU 15:28 → IMCU/EMU 03-04 15:12
PROVIDERS: ADMIT Hospitalist; ATTEND Family Medicine
PROC: 5A09457 Assistance with Respiratory Ventilation, 24-96 Consecutive Hours, Continuous Positive Airway Pressure (ICD-10-PCS; principal; 2021-03-02)
PROC: 5A0935A Assistance with Respiratory Ventilation, Less than 24 Consecutive Hours, High Flow/Velocity Cannula (ICD-10-PCS; 2021-03-02)
DX: I13.0 Hypertensive heart and chronic kidney disease with heart failure and stage 1 through stage 4 chronic kidney disease, or unspecified chronic kidney disease (principal); J96.21 Acute and chronic respiratory failure with hypoxia; I50.33 Acute on chronic diastolic (congestive) heart failure; I48.20 Chronic atrial fibrillation, unspecified; N17.9 Acute kidney failure, unspecified; G93.49 Other encephalopathy; Z66 Do not resuscitate; Z51.5 Encounter for palliative care; I48.91 Unspecified atrial fibrillation; F41.9 Anxiety disorder, unspecified; J44.9 Chronic obstructive pulmonary disease, unspecified; R77.8 Other specified abnormalities of plasma proteins; N18.9 Chronic kidney disease, unspecified; D63.1 Anemia in chronic kidney disease; I34.0 Nonrheumatic mitral (valve) insufficiency; F32.9 Major depressive disorder, single episode, unspecified; Z78.1 Physical restraint status; Z86.74 Personal history of sudden cardiac arrest; Z95.810 Presence of automatic (implantable) cardiac defibrillator; Z88.1 Allergy status to other antibiotic agents; Z88.2 Allergy status to sulfonamides; Z88.8 Allergy status to other drugs, medicaments and biological substances; Z79.899 Other long term (current) drug therapy; Z79.890 Hormone replacement therapy; Z79.82 Long term (current) use of aspirin; Z79.84 Long term (current) use of oral hypoglycemic drugs; Z79.01 Long term (current) use of anticoagulants; Z95.2 Presence of prosthetic heart valve
CPT/HCPCS: 36415; 36416; 71045; 80048; 81001; 83735; 83880; 85025; 85379; 87086; 94640; 94660; J0360; J1650; J1940; J2270; J2920; J7620

== ENCOUNTER 2021-03-05 20:32 | Inpatient (IN) | payer OTHER ==
[2021-03-05] MEDS ORDERED: Lorazepam 2 MG/ML VIAL SLOW IVP PRN (20:58)
[2021-03-05 20:59] VITALS: BMI 29.7
[2021-03-05] MEDS ORDERED: Scopolamine 1.5 mg/72 hour Patch TOP PRN (21:00)
[2021-03-05 21:01] VITALS: TEMP 100.2
[2021-03-05] MEDS ORDERED: Acetaminophen 650 MG Suppository PR PRN (21:02)
[2021-03-05] MEDS ORDERED: Morphine 4 MG/ML VIAL SLOW IVP PRN (21:03)
[2021-03-05] MEDS: Lorazepam 2 MG/ML VIAL SLOW IVP SCH (21:11)
[2021-03-05] MEDS: Morphine 4 MG/ML VIAL SLOW IVP SCH (21:11)
[2021-03-06] MEDS: Morphine 4 MG/ML VIAL SLOW IVP SCH ×2 (00:05→01:52)
[2021-03-06] MEDS: Lorazepam 2 MG/ML VIAL SLOW IVP SCH (00:42)
== END 2021-03-06 03:34 | disposition expired | DRG 951 ==
LOC: IMCU/EMU 20:32
PROVIDERS: ADMIT Family Medicine; ATTEND Family Medicine
DX: Z51.5 Encounter for palliative care (principal)
CPT/HCPCS: J2060; J2270